=== PATIENT | female | born 1965 | race Caucasian/White ===

== ENCOUNTER 2017-09-12 22:05 | Observation (INO) ==
[2017-09-12] MEDS ORDERED: Aspirin 81 MG TAB.CHEW PO STA (22:12)
[2017-09-12] MEDS ORDERED: Ondansetron 4 MG/2 ML VIAL IVP ONE (22:15)
[2017-09-12] MEDS ORDERED: Nitroglycerin 0.4 MG TAB.SUBL SL ONE (22:16)
--- NOTE | 2017-09-12 22:16 | Emergency Department Note ---
Disposition Clinical Impression: Chest pain Qualifiers: Chest pain type: unspecified Qualified Code(s): R07.9 - Chest pain, unspecified Disposition: Admitted As Inpatient Condition: Undetermined Referrals: Clyde Lucio DO [Primary Care Provider] - Forms: ED Satisfaction Letter Time of Disposition: 23:13 Chest Pain HPI - General Chief Complaint: ED Chest Pain Stated Complaint: Chest pain, nausea, vomiting. Time Seen by Provider: 09/12/17 22:11 Source: patient, EMS Mode of arrival: EMS Limitations: no limitations Vital Signs Reviewed: Yes Nursing Notes Reviewed: Yes - History of Present Illness HPI Narrative: 51-year-old female with history of NM, hypertension, hyperlipidemia, diabetes, smoker, arrives to the emergency department with complaint of retrosternal chest pain radiating to the right side of her neck and right shoulder that started roughly 3 hours ago. The patient states that she had some associated shortness of breath and nausea. She has had no vomiting. She states that this is very similar to previous MIs in the past. She is very worried that she is having another NM. The patient states she took 2 aspirin earlier this morning. She was transported to the emergency department for evaluation. She denies any unilateral leg swelling, hemoptysis, history of DVT or PE, recent surgeries , recent immobilizations. - Related Data Home Medications Medication Instructions Recorded Confirmed GlipiZIDE XL (24 HR) [Glucotrol XL] 10 mg PO QAM 06/02/15 09/12/17 metFORMIN [Glucophage] 1,000 mg PO BID 06/02/15 09/12/17 Atorvastatin [Lipitor] 20 mg PO HS 09/12/17 09/12/17 Insulin Degludec [Tresiba 108 units SQ DAILY 09/12/17 09/12/17 Flextouch U-100] Allergies Allergy/AdvReac Type Severity Reaction Status Date / Time acetaminophen Allergy Hives Verified 04/17/15 17:27 [From Tylenol-Codeine] codeine Allergy Hives Verified 04/17/15 17:27 [From Tylenol-Codeine] All systems ED: reviewed and negative except as stated. Constitutional: Denies: fever Eyes: Denies: eye pain ENT ED: Denies: congestion Cardiovascular: Reports: chest pain, dyspnea on exertion, edema. Denies: orthopnea, syncope Respiratory: Reports: dyspnea. Denies: cough, wheezes Gastrointestinal: Reports: nausea. Denies: abdominal pain, vomiting, diarrhea, constipation, hematemesis, melena, hematochezia Genitourinary: Denies: urgency, dysuria Musculoskeletal: Denies: back pain Integumentary: Denies: rash Neurological: Denies: headache Chest Pain PMH - Past Medical History Medical history: Reports: arthritis, diabetes, hyperlipidemia, hypertension, myocardial infarction Surgical history: Reports: Psychiatric history: Reports: no psych history Prior Cardiac Testing/Procedures: Cardiac Angiogram - Social History Smoking Status: Current every day smoker Alcohol use: Reports: none Drug use: Reports: none Physical Exam - General Limitations: no limitations General appearance: alert, in no apparent distress - Head Head exam: atraumatic, normocephalic, normal inspection - Eye Eye exam: Present: normal appearance, PERRL, EOMI - ENT ENT exam: normal exam, normal oropharynx, mucous membranes moist - Neck Neck exam: Present: normal inspection, full ROM, trachea midline - Chest Chest inspection: Present: normal inspection, symmetric chest wall rise - Respiratory Respiratory exam: Present: normal lung sounds bilaterally - Cardiovascular Cardiovascular exam: Present: regular rate, normal rhythm, normal heart sounds - Abdominal Exam Abdominal exam: Present: soft, Non-Tender. Absent: tenderness, distention, guarding, rebound, rigidity, Mendoza's sign - Extremities Exam Extremities exam: Present: normal inspection, full ROM, pedal edema (Trace edema bilaterally). Absent: tenderness - Neurological Exam Neurological exam: Present: alert, oriented X3 - Skin Skin exam: Present: warm, dry, intact, normal color Course Vital Signs Temperature 97.9 F 09/12/17 22:19 Pulse Rate 76 09/12/17 22:19 Respiratory Rate 12 09/12/17 22:19 Blood Pressure 115/59 09/12/17 22:19 O2 Sat by Pulse Oximetry 96 09/12/17 22:19 Temperature 97.9 F 09/12/17 22:19 Pulse Rate 75 09/12/17 22:44 Respiratory Rate 12 09/12/17 22:44 Blood Pressure 128/71 09/12/17 22:44 O2 Sat by Pulse Oximetry 99 09/12/17 22:44 Oxygen Delivery Oxygen Delivery Room Air Chest Pain - MDM Narrative Medical decision making narrative: Workup in the emergency department demonstrates no elevation in troponin and no EKG changes, but given patient's history of NM without stent placement as well as history of hypertension, hyperlipidemia, smoking, diabetes mellitus any risk factors, we will admit the patient to the hospital for ACS rule out. The patient agrees to plan of care. No further questions or concerns noted at this time. The patient did have relief of her chest pain with 3 nitroglycerin. Patient is resting comfortably in the room at this time. Accepted by Dr. Stone. - Medical Records Medical records reviewed: Yes I reviewed the patient's medical records. - Lab Data Lab results reviewed: Yes I reviewed the patient's lab results. Result diagrams: 09/12/17 22:15 09/12/17 22:12 Lab Results 09/12/17 09/12/17 Range/Units 22:12 22:15 WBC 9.7 (4.3-11.1) K/mcL RBC 4.18 (3.82-4.97) M/mcL Hgb 12.9 (11.5-15.4) g/dL Hct 38.2 (35.3-44.9) % MCV 91.4 (83.0-100.0) fL MCH 30.9 (28.0-33.3) pg MCHC 33.8 (31.6-35.5) g/dL RDW 14.0 (11.5-14.5) % Plt Count 277 (140-400) K/mcL MPV 8.8 L (9.4-12.4) fL Immature Gran % 0.2 (0-4) % Seg Neutrophils % 40.7 % Lymphocytes % 49.7 % Monocytes % 5.5 % Eosinophils % 3.5 % Basophils % 0.4 % Neutrophils # 4.0 (1.6-8.9) K/mcL Lymphocytes # 4.8 H (0.6-4.6) K/mcL Monocytes # 0.5 (0.0-1.3) K/mcL Eosinophils # 0.3 (0.0-0.6) K/mcL Basophils # 0.0 (0.0-0.2) K/mcL Sodium 140 (136-145) mEq/L Potassium 3.4 L (3.5-5.1) mEq/L Chloride 106 (98-107) mEq/L Carbon Dioxide 27 (23-29) mEq/L BUN 9 (6-20) mg/dL Creatinine 0.47 L (0.60-1.20) mg/dL Est GFR ( Amer) > 60 (> 60) Est GFR (Non-Af Amer) > 60 (> 60) BUN/Creatinine Ratio 19 (6-26) Glucose 75 (70-105) mg/dL Calculated Osmolality 287 (280-300) Calcium 9.3 (8.6-10.3) mg/dL Total Bilirubin 0.4 (0.3-1.0) mg/dL AST 25 (13-39) Units/L ALT 22 (7-52) Units/L Alkaline Phosphatase 69 (34-104) Units/L Troponin I < 0.03 (< 0.04) ng/mL Serum Total Protein 7.1 (6.4-8.9) g/dL Albumin 3.7 (3.5-5.7) g/dL Globulin 3.4 (2.4-3.5) g/dL Albumin/Globulin Ratio 1.1 (1.1-2.2) - Radiology Data Radiology results reviewed: Yes I reviewed the patient's radiology results. Chest X-Ray 09/12/17 22:12 IMPRESSION: New mild pulmonary vascular congestion D/ / Jeff Garcia MD / Jeff Garcia MD Interpreting Provider: Jeff Garcia MD - EKG Data EKG attestation: Yes I reviewed and interpreted this EKG. EKG results narrative: Heart rate 75 beats for minute. Normal sinus rhythm. No ST elevation or ST depression noted. No acute changes noted.
[2017-09-12] MEDS: Nitroglycerin 0.4 MG TAB.SUBL SL PRN ×2 (22:24→22:28)
[2017-09-12 22:25] LABS: Basophils % 0.4 %; Eosinophils # 0.3 K/mcL (0.0-0.6); Eosinophils % 3.5 %; Hematocrit 38.2 % (35.3-44.9); Hemoglobin 12.9 g/dL (11.5-15.4); Immature Granulocytes % 0.2 % (0-4); Lymphocytes # 4.8 K/mcL (0.6-4.6); Lymphocytes % 49.7 %; Mean Corpuscular HGB Conc 33.8 g/dL (31.6-35.5); Mean Corpuscular Hemoglobin 30.9 pg (28.0-33.3); Mean Corpuscular Volume 91.4 fL (83.0-100.0); Mean Platelet Volume 8.8 fL (9.4-12.4); Monocytes # 0.5 K/mcL (0.0-1.3); Monocytes % 5.5 %; Platelet Count 277 K/mcL (140-400); Red Blood Count 4.18 M/mcL (3.82-4.97); Segmented Neutrophils % 40.7 %
--- NOTE | 2017-09-12 22:45 | Emergency Department Note ---
Disposition Clinical Impression: Chest pain Disposition: Admitted As Inpatient Condition: Undetermined General Adult HPI - General Chief complaint: ED Chest Pain Stated complaint: Chest pain, nausea, vomiting. Time Seen by Provider: 09/12/17 22:11 Source: patient, EMS Mode of arrival: EMS Limitations: no limitations Nursing Notes Reviewed: Yes Vital Signs Reviewed: Yes - History of Present Illness Pain Scale: 2 - Related Data Home Medications Medication Instructions Recorded Confirmed GlipiZIDE XL (24 HR) [Glucotrol XL] 10 mg PO QAM 06/02/15 09/12/17 metFORMIN [Glucophage] 1,000 mg PO BID 06/02/15 09/12/17 Atorvastatin [Lipitor] 20 mg PO HS 09/12/17 09/12/17 Insulin Degludec [Tresiba 108 units SQ DAILY 09/12/17 09/12/17 Flextouch U-100] Allergies Allergy/AdvReac Type Severity Reaction Status Date / Time acetaminophen Allergy Hives Verified 04/17/15 17:27 [From Tylenol-Codeine] codeine Allergy Hives Verified 04/17/15 17:27 [From Tylenol-Codeine] Constitutional: Denies: fever Eyes: Denies: eye pain ENT ED: Denies: congestion Cardiovascular: Reports: chest pain, dyspnea on exertion, edema. Denies: orthopnea, syncope Respiratory: Reports: dyspnea. Denies: cough, wheezes Gastrointestinal: Reports: nausea. Denies: abdominal pain, vomiting, diarrhea, constipation, hematemesis, melena, hematochezia Genitourinary: Denies: urgency, dysuria Musculoskeletal: Denies: back pain Integumentary: Denies: rash Neurological: Denies: headache Past Medical History - Past Medical History Medical history: Reports: arthritis, diabetes, hyperlipidemia, hypertension, myocardial infarction Surgical history: Reports: Psychiatric history: Reports: no psych history - Social History Smoking Status: Current every day smoker Smokeless Tobacco Status: No Alcohol use: Reports: none Drug use: Reports: none Physical Exam - General Limitations: no limitations General appearance: alert, in no apparent distress Course Vital Signs Temperature 97.9 F 09/12/17 22:19 Pulse Rate 76 09/12/17 22:19 Respiratory Rate 12 09/12/17 22:19 Blood Pressure 115/59 09/12/17 22:19 O2 Sat by Pulse Oximetry 96 09/12/17 22:19 Temperature 97.9 F 09/12/17 22:19 Pulse Rate 75 09/12/17 22:44 Respiratory Rate 12 09/12/17 22:44 Blood Pressure 128/71 09/12/17 22:44 O2 Sat by Pulse Oximetry 99 09/12/17 22:44 Oxygen Delivery Oxygen Delivery Room Air Medical Decision Making - Lab Data Result diagrams: 09/12/17 22:15 09/12/17 22:12 Lab Results 09/12/17 09/12/17 Range/Units 22:12 22:15 WBC 9.7 (4.3-11.1) K/mcL RBC 4.18 (3.82-4.97) M/mcL Hgb 12.9 (11.5-15.4) g/dL Hct 38.2 (35.3-44.9) % MCV 91.4 (83.0-100.0) fL MCH 30.9 (28.0-33.3) pg MCHC 33.8 (31.6-35.5) g/dL RDW 14.0 (11.5-14.5) % Plt Count 277 (140-400) K/mcL MPV 8.8 L (9.4-12.4) fL Immature Gran % 0.2 (0-4) % Seg Neutrophils % 40.7 % Lymphocytes % 49.7 % Monocytes % 5.5 % Eosinophils % 3.5 % Basophils % 0.4 % Neutrophils # 4.0 (1.6-8.9) K/mcL Lymphocytes # 4.8 H (0.6-4.6) K/mcL Monocytes # 0.5 (0.0-1.3) K/mcL Eosinophils # 0.3 (0.0-0.6) K/mcL Basophils # 0.0 (0.0-0.2) K/mcL Sodium 140 (136-145) mEq/L Potassium 3.4 L (3.5-5.1) mEq/L Chloride 106 (98-107) mEq/L Carbon Dioxide 27 (23-29) mEq/L BUN 9 (6-20) mg/dL Creatinine 0.47 L (0.60-1.20) mg/dL Est GFR ( Amer) > 60 (> 60) Est GFR (Non-Af Amer) > 60 (> 60) BUN/Creatinine Ratio 19 (6-26) Glucose 75 (70-105) mg/dL Calculated Osmolality 287 (280-300) Calcium 9.3 (8.6-10.3) mg/dL Total Bilirubin 0.4 (0.3-1.0) mg/dL AST 25 (13-39) Units/L ALT 22 (7-52) Units/L Alkaline Phosphatase 69 (34-104) Units/L Troponin I < 0.03 (< 0.04) ng/mL Serum Total Protein 7.1 (6.4-8.9) g/dL Albumin 3.7 (3.5-5.7) g/dL Globulin 3.4 (2.4-3.5) g/dL Albumin/Globulin Ratio 1.1 (1.1-2.2) Attestation Statement - Attestation Attestation: I, Dayo Cruz MD, personally evaluated this patient and discussed their management with the resident physician. I reviewed the resident's note and agree with the documented findings, medical decision making, and plan of care. 51-year-old female presents to the emergency department by ambulance with a complaint of substernal chest pains that started earlier this afternoon. The pain was intermittent until about 7 PM and has been constant since then. The pain radiates up to the right shoulder and the right side of the neck. Patient admits to shortness of breath associated with the pain. She also complains of nausea with some vomiting. Also some diaphoresis. Patient has a prior history of [place] and states this feels similar. She received aspirin at home and per EMS prior to arrival. She also received nitroglycerin sublingual. On examination patient is a well-developed obese female in no acute distress. She is alert and oriented 3. There is no cyanosis or diaphoresis. Chest is nontender to palpation. Breath sounds are clear and equal bilaterally. Heart regular rate and rhythm. Abdomen soft and nontender with normal bowel sounds. EKG shows a normal sinus rhythm with ventricular rate of 75. No ST segment elevations or depressions. Normal EKG. Chest x-ray shows new mild pulmonary vascular congestion. Labs reviewed and unremarkable. Troponin normal. The hospitalist, Dr. Stone, was consulted and accepted admission of the patient.
[2017-09-12 22:50] LABS: Alanine Aminotransferase 22 Units/L (7-52); Albumin 3.7 g/dL (3.5-5.7); Albumin/Globulin Ratio 1.1 (1.1-2.2); Alkaline Phosphatase 69 Units/L (34-104); Aspartate Amino Transferase 25 Units/L (13-39); BUN/Creatinine Ratio 19 (6-26); Bilirubin,Total 0.4 mg/dL (0.3-1.0); Blood Urea Nitrogen 9 mg/dL (6-20); Calcium 9.3 mg/dL (8.6-10.3); Carbon Dioxide 27 mEq/L (23-29); Chloride 106 mEq/L (98-107); Globulin 3.4 g/dL (2.4-3.5); Glucose 75 mg/dL (70-105); Osmolality,Calculated 287 (280-300); Potassium 3.4 mEq/L (3.5-5.1); Sodium 140 mEq/L (136-145); Total Protein 7.1 g/dL (6.4-8.9); eGFR For African Americans > 60 (> 60); eGFR For Non-African Americans > 60 (> 60)
[2017-09-12 22:52] LABS: Troponin I < 0.03 ng/mL (< 0.04)
[2017-09-12] MEDS ORDERED: D5% in Water 1,000 ML IVC PRN (23:15)
[2017-09-12] MEDS ORDERED: Naloxone 0.4 MG/ML INJ IVP PRN (23:15)
[2017-09-12] MEDS ORDERED: *HR* Dextrose 50 % in Water (Syg) 50 ML SYRINGE IVP PRN (23:15)
[2017-09-12] MEDS ORDERED: Dextrose Gel 15 GM/37.5 ML TUBE PO PRN ×2 (23:15)
[2017-09-12] MEDS ORDERED: Nitroglycerin 0.4 MG TAB.SUBL SL PRN (23:17)
--- NOTE | 2017-09-12 23:20 | Internal Med History&Physical ---
Date of Encounter: 09/12/17 Time of Encounter: 23:18 Internal Medicine - H&P: HPI Chief complaint: Chest pain Admitted From: Emergency Dept Plans for Post Hospital Care: Home History of present illness: Ms. Tatum is a 51 year old female with history of previous NC but no stents, HLD, DM, tobacco abuse presents with CP radiating to the right neck and right shoulder "similar to previous NC". This started this afternoon prior to arrival to the ED. She reports retrosternal pressure. Reports shortness of breath, nausea,diphoresis, and both upper and lower extremity swelling. She says the swelling has been going on for the last 3 days. She also reports dyspnea on exertion as well as orthopnea. Took 2 baby ASA at home and given 2 more in the ED. Had relieve with 3 SL nitro. ED course was unremarkable with EKG showing normal sinus rhythm with no acute ST or T wave changes. Trops not elevated. CXR showed mild pulmonary vascular congestion. Stress echo in 2016 was negative with an EF of 60%. Denies fever, chills, blurry vision, headache, vomiting, abdominal pain, diarrhea, constipation, urinary symptoms, or neurological symptoms. Past Med Surg Social Fam HX - Past Medical History Medical history: arthritis, diabetes, hyperlipidemia, hypertension, myocardial infarction Psychiatric history: no psych history - Past Surgical History Surgical History: - Social History Smoking Status: Current every day smoker Smokeless Tobacco Status: No Alcohol use: none Drug use: none - Family History Mother Hx Family Cardiac Disorders: Yes (CHF, HTN) Hx Family Cancer: Yes (Nonhodkins lymphoma, skin cancer) Hx Family Endocrine Disorder: Yes (Diabetes) Father Living Status: Hx Family Cardiac Disorders: Yes (Acute coronary occlusion) Hx Family Endocrine Disorder: Yes (Diabetes) Internal Medicine - H&P: Meds GlipiZIDE XL (24 HR) [Glucotrol XL] 10 mg PO QAM 06/02/15 [History] metFORMIN [Glucophage] 1,000 mg PO BID 06/02/15 [History] Atorvastatin [Lipitor] 20 mg PO HS 09/12/17 [History] Insulin Degludec [Tresiba Flextouch U-100] 108 units SQ DAILY 09/12/17 [History] 3 Allergy/AdvReac Type Severity Reaction Status Date / Time acetaminophen Allergy Hives Verified 04/17/15 17:27 [From Tylenol-Codeine] codeine Allergy Hives Verified 04/17/15 17:27 [From Tylenol-Codeine] All Systems PM: A 10-system review of systems was performed and is negative for pertinent findings except as documented above in the HPI. Review of systems: All systems reviewed are negative except for as mentioned above - Constitutional Vitals: Temp Pulse Resp BP Pulse Ox 97.9 F 75 12 128/71 99 09/12/17 22:19 09/12/17 22:44 09/12/17 22:44 09/12/17 22:44 09/12/17 22:44 Exam: GEN: NAD HEENT: AT, NC, No cyanosis, oral mucosa is moist, No JVD Lymphatics: No lymphadenoapthy Eyes: Extrocular muscles intact, anicteric CVS:RRR. S1, S2, No m/r/g RESP: Crackles heard at the bases for the most part. ABD: Soft, NT, ND, +BS EXT: Bilateral ankle edema noted, No rashes, 2+ DP NEURO: Nonfocal, CN II-XII intact, No focal motor or sensory deficits Psych: Cooperative, Not anxious or depressed Internal Med - H&P Results - Labs CBC & Chem 7: 09/12/17 22:15 09/12/17 22:12 Labs: Short CBC 09/12/17 Range/Units 22:15 WBC 9.7 (4.3-11.1) K/mcL Hgb 12.9 (11.5-15.4) g/dL Hct 38.2 (35.3-44.9) % Plt Count 277 (140-400) K/mcL Neutrophils # 4.0 (1.6-8.9) K/mcL BMP 09/12/17 22:12 Sodium 140 Potassium 3.4 L Chloride 106 Carbon Dioxide 27 BUN 9 Creatinine 0.47 L Glucose 75 Calcium 9.3 Cardiac Enzymes 09/12/17 Range/Units 22:12 Troponin I < 0.03 (< 0.04) ng/mL Liver Function 09/12/17 Range/Units 22:12 Total Bilirubin 0.4 (0.3-1.0) mg/dL AST 25 (13-39) Units/L ALT 22 (7-52) Units/L Alkaline Phosphatase 69 (34-104) Units/L Albumin 3.7 (3.5-5.7) g/dL - Impressions ITS Impressions Chest X-Ray 09/12/17 22:12 IMPRESSION: New mild pulmonary vascular congestion D/ / Jeff Garcia MD / Jeff Garcia MD Interpreting Provider: Jeff Garcia MD - Assessment and plan (1) Chest pain Current Visit: Yes Status: Acute Assessment and plan: Admit to tele. Trend trops. SL nitro. Stress test in am. Given ASA in ED. check A1c and lipid panel. NPO after midnight. Qualifiers: Chest pain type: unspecified Qualified Code(s): R07.9 - Chest pain, unspecified (2) Pulmonary vascular congestion Current Visit: Yes Status: Acute Assessment and plan: Patient has pulmonary vascular congestion on chest x-ray. She reports dyspnea on exertion, orthopnea, lower extremity and upper extremity swelling. She does have crackles on examination as well as pedal edema. We will check BNP. We will give a dose of 40 mg IV Lasix. We will check an echocardiogram. (3) HLD (hyperlipidemia) Current Visit: Yes Status: Acute Assessment and plan: c/w statin. check lipid panel Qualifiers: Hyperlipidemia type: unspecified Qualified Code(s): E78.5 - Hyperlipidemia , unspecified (4) Diabetes Current Visit: No Status: Chronic Assessment and plan: Insulin sliding scale. Accucheks. 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 Nicotine patch (6) DVT prophylaxis Current Visit: Yes Status: Acute Assessment and plan: heparin SQ. - Time Spent With Patient Total time spent is greater than 50% in coordination of care (as documented) at patient's floor/unit and/or counseling patient:
[2017-09-12] MEDS ORDERED: Furosemide 40 MG/4 ML VIAL IVP ONE (23:39)
[2017-09-13] MEDS: Acetaminophen 325 MG TABLET PO PRN ×2 (00:26→09:38)
[2017-09-13] MEDS: Nicotine 21 MG PATCH.TD24 TD SCH ×2 (00:27→09:01)
[2017-09-13] MEDS: Insulin LISPRO 300 UNITS/3 ML VIAL SQ SCH ×4 (00:28→19:04)
[2017-09-13] MEDS ORDERED: Regadenoson 0.4 MG/5 ML SYRINGE IVP ONE (05:26)
[2017-09-13 05:44] LABS: Troponin I < 0.03 ng/mL (< 0.04)
[2017-09-13 05:48] LABS: BUN/Creatinine Ratio 14 (6-26); Blood Urea Nitrogen 8 mg/dL (6-20); Carbon Dioxide 29 mEq/L (23-29); Chloride 107 mEq/L (98-107); Chol/HDL Ratio 3.5 (0-4.9); Cholesterol 128 mg/dL (< 200); Glucose 68 mg/dL (70-105); HDL Cholesterol 37 mg/dL (40-59); LDL Cholesterol,Calculated 67 mg/dL (0-99); Magnesium 2.1 mg/dL (1.6-2.6); Osmolality,Calculated 289 (280-300); Potassium 3.8 mEq/L (3.5-5.1); Sodium 141 mEq/L (136-145); Triglycerides 120 mg/dL (< 150); eGFR For African Americans > 60 (> 60); eGFR For Non-African Americans > 60 (> 60)
[2017-09-13] MEDS: *HR* Heparin 5,000 UNIT/ML VIAL SQ SCH ×3 (05:52→21:26)
[2017-09-13 09:32] LABS: Estimated Average Glucose 177 mg/dl; Hemoglobin A1C 7.8 %
--- NOTE | 2017-09-13 15:46 | Internal Med Progress Note ---
Date of Encounter: 09/13/17 Time of Encounter: 09:00 - Assessment and plan (1) Chest pain Current Visit: Yes Status: Acute Assessment and plan: Has not been expressing chest pain at this time troponins have been negative Underwent first half of a 2 day stress-nothing by mouth after midnight Continue with aspirin Qualifiers: Chest pain type: unspecified Qualified Code(s): R07.9 - Chest pain, unspecified (2) Tobacco abuse Current Visit: No Status: Acute Assessment and plan: Encouraged patient to stop smoking- Nicotine patch (3) Diabetes Current Visit: No Status: Chronic Assessment and plan: Insulin sliding scale. Accucheks. 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 (6) Pulmonary vascular congestion Current Visit: Yes Status: Acute Assessment and plan: Patient has pulmonary vascular congestion on chest x-ray. On presentation she reports dyspnea on exertion, orthopnea, lower extremity and upper extremity swelling. -Denies any shortness of breath or chest pain at this time BNP was okay Echocardiogram pending (7) Homelessness Current Visit: Yes Status: Acute Assessment and plan: Patient is homeless drug abuse social worker has been consulted for discharge planning - Time Spent With Patient Total time spent is greater than 50% in coordination of care (as documented) at patient's floor/unit and/or counseling patient: - Subjective Interval history: This patient is new to me I did examine the patient at bedside earlier in the day. She has completed the first half of 2 day stress test and tolerated procedure well. She denies any chest pain or shortness of breath at this time. - Constitutional Vitals: Temp Pulse Resp BP Pulse Ox 99.0 F 75 16 119/75 96 09/13/17 15:12 09/13/17 15:12 09/13/17 15:12 09/13/17 15:12 09/13/17 15:12 General appearance: Present: A&O X 3, morbidly obese - Head Head exam: Present: atraumatic, normocephalic - Eye Eye exam: Present: PERRL, conjuntiva pink, sclera anicteric Pupils: Present: PERRL - Neck Neck exam general surgery: Present: supple, trachea midline. Absent: lymphadenopathy - Respiratory Respiratory exam: Present: CTAB. Absent: accessory muscle use, rales, rhonchi, wheezes - Cardiovascular Cardiovascular exam: Present: RRR, +S1, +S2. Absent: diastolic murmur, gallop, rubs, systolic murmur - GI/Abdominal GI/Abdominal exam: Present: normal bowel sounds, soft, no peritoneal signs. Absent: distended, tenderness - Extremities Exam Extremities exam: Present: warm, radial pulses palpable and symmetrical. Absent : calf tenderness, cyanotic, pedal edema - Neurological Exam Neurological exam: Present: CN II-XII intact, oriented X3, no focal deficits. Absent: pronater drift, facial droop, speech deficit - Skin Skin exam: Present: dry, intact Internal Medicine: Result - Labs CBC & Chem 7: 09/12/17 22:15 09/13/17 04:40 Labs: BMP 09/13/17 04:40 Sodium 141 Potassium 3.8 Chloride 107 Carbon Dioxide 29 BUN 8 Creatinine 0.56 L Glucose 68 L Calcium 9.0 Cardiac Enzymes 09/13/17 09/13/17 Range/Units 04:40 09:38 Troponin I < 0.03 < 0.03 (< 0.04) ng/mL Consult Discharge Plan - Plan Referrals: Clyde Lucio DO [Primary Care Provider] -
[2017-09-14] MEDS: Insulin LISPRO 300 UNITS/3 ML VIAL SQ SCH ×5 (00:08→21:26)
[2017-09-14 04:46] LABS: Basophils % 0.5 %; Eosinophils # 0.3 K/mcL (0.0-0.6); Eosinophils % 3.4 %; Hematocrit 37.1 % (35.3-44.9); Hemoglobin 12.1 g/dL (11.5-15.4); Immature Granulocytes % 0.1 % (0-4); Lymphocytes # 3.4 K/mcL (0.6-4.6); Lymphocytes % 45.4 %; Mean Corpuscular HGB Conc 32.6 g/dL (31.6-35.5); Mean Corpuscular Hemoglobin 30.2 pg (28.0-33.3); Mean Corpuscular Volume 92.5 fL (83.0-100.0); Mean Platelet Volume 8.9 fL (9.4-12.4); Monocytes # 0.5 K/mcL (0.0-1.3); Monocytes % 6.2 %; Neutrophils # 3.4 K/mcL (1.6-8.9); Nucleated Red Blood Cells 0.3 /100 WBC (0); Platelet Count 264 K/mcL (140-400); Red Blood Count 4.01 M/mcL (3.82-4.97); Red Cell Distribution Width 14.3 % (11.5-14.5); Segmented Neutrophils % 44.4 %
[2017-09-14 05:04] LABS: BUN/Creatinine Ratio 20 (6-26); Blood Urea Nitrogen 11 mg/dL (6-20); Calcium 8.8 mg/dL (8.6-10.3); Carbon Dioxide 29 mEq/L (23-29); Chloride 106 mEq/L (98-107); Glucose 81 mg/dL (70-105); Osmolality,Calculated 288 (280-300); Potassium 3.8 mEq/L (3.5-5.1); Sodium 140 mEq/L (136-145); eGFR For African Americans > 60 (> 60); eGFR For Non-African Americans > 60 (> 60)
[2017-09-14] MEDS: *HR* Heparin 5,000 UNIT/ML VIAL SQ SCH ×3 (05:59→21:28)
[2017-09-14] MEDS: Nicotine 21 MG PATCH.TD24 TD SCH (08:19)
--- NOTE | 2017-09-14 16:09 | Electrocardiograph Report ---
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
--- NOTE | 2017-09-14 16:13 | Internal Med Progress Note ---
Date of Encounter: 09/14/17 Time of Encounter: 16:08 - Assessment and plan (1) Chest pain Current Visit: Yes Status: Acute Assessment and plan: Presented with chest pain described as pressure that radiated to neck. Reports history of mild MT many years ago. Serial troponin negative, EKG without acute ST changes. TTE with EF 60%, no wall motion abnormalities or valvular dysfunction. Stress test was small size, mild intensity perfusion defect that cannot exclude mild ischemia. Continue ASA, cardiology consulted Qualifiers: Chest pain type: unspecified Qualified Code(s): R07.9 - Chest pain, unspecified (2) Acute on chronic diastolic (congestive) heart failure Current Visit: Yes Status: Acute Assessment and plan: suspected. Symptomatic with lower extremity and hand edema. Rales noted on exam. CXR with vascular congestion. TTE with EF 60%, indeterminate diastolic dysfunction. Give one-time dose IV Lasix. (3) Tobacco abuse Current Visit: No Status: Acute Assessment and plan: Encouraged patient to stop smoking- Nicotine patch (4) Diabetes Current Visit: No Status: Chronic Assessment and plan: Insulin sliding scale. Accucheks. a1c-7.5 Qualifiers: Diabetes mellitus type: type 2 Diabetes mellitus mcc insulin use: with terminal operations manager use Diabetes mellitus complication status: without complication Qualified Code(s): E11.9 - Type 2 diabetes mellitus without complications; Z79.4 - penitentiary (current) use of insulin; Z79.4 - penitentiary ( current) use of insulin; Z79.4 - exterminator termite (current) use of insulin; Z79.4 - penitentiary (current) use of insulin (5) HLD (hyperlipidemia) Current Visit: Yes Status: Acute Assessment and plan: per hx. Cont home statin Qualifiers: Hyperlipidemia type: unspecified Qualified Code(s): E78.5 - Hyperlipidemia , unspecified (6) Homelessness Current Visit: Yes Status: Acute Assessment and plan: Patient is homeless. Currently living in homeless snf. 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 (7) DVT prophylaxis Current Visit: Yes Status: Acute Assessment and plan: heparin - Time Spent With Patient Total time spent is greater than 50% in coordination of care (as documented) at patient's floor/unit and/or counseling patient: - Subjective Interval history: Seen and examined at bedside. Patient is new to me, information obtained from chart review and patient report. Overall feels better, denies chest pain, no shortness of breath. Says she was told she had a mild heart attack many years ago. - Constitutional Vitals: Temp Pulse Resp BP Pulse Ox 98.7 F 78 16 129/78 95 09/14/17 16:00 09/14/17 16:00 09/14/17 16:00 09/14/17 16:00 09/14/17 16:00 General appearance: Present: A&O X 3, morbidly obese - Head Head exam: Present: atraumatic, normocephalic - Eye Eye exam: Present: PERRL, conjuntiva pink, sclera anicteric Pupils: Present: PERRL - Neck Neck exam general surgery: Present: supple, trachea midline. Absent: lymphadenopathy - Respiratory Respiratory exam: Present: CTAB. Absent: accessory muscle use, rales, rhonchi, wheezes - Cardiovascular Cardiovascular exam: Present: RRR, +S1, +S2. Absent: diastolic murmur, gallop, rubs, systolic murmur - GI/Abdominal GI/Abdominal exam: Present: normal bowel sounds, soft, no peritoneal signs. Absent: distended, tenderness - Extremities Exam Extremities exam: Present: warm, radial pulses palpable and symmetrical. Absent : calf tenderness, cyanotic, pedal edema - Neurological Exam Neurological exam: Present: CN II-XII intact, oriented X3, no focal deficits. Absent: pronater drift, facial droop, speech deficit - Skin Skin exam: Present: dry, intact Internal Medicine: Result - Labs CBC & Chem 7: 09/14/17 04:22 09/14/17 04:22 Labs: Short CBC 09/14/17 Range/Units 04:22 WBC 7.6 (4.3-11.1) K/mcL Hgb 12.1 (11.5-15.4) g/dL Hct 37.1 (35.3-44.9) % Plt Count 264 (140-400) K/mcL Neutrophils # 3.4 (1.6-8.9) K/mcL BMP 09/14/17 04:22 Sodium 140 Potassium 3.8 Chloride 106 Carbon Dioxide 29 BUN 11 Creatinine 0.54 L Glucose 81 Calcium 8.8 - Impressions Impressions Echocardiogram 09/12/17 23:41 Impressions: LVEF 60%. Indeterminate diastolic function. Normal right ventricular structure and function. No significant valvular dysfunction. No pulmonary hypertension. Left Ventricular Wall Motion: Rest Echo Findings All wall segments showed normal motion. Findings: Study Quality * Technically adequate exam. ECG Findings * Normal sinus rhythm. Left Ventricle * LVEF 60%. * Normal LV chamber size, wall thickness and function. * Indeterminate diastolic function. Right Ventricle * Normal right ventricular structure and function. Left Atrium * Normal left atrial size. Right Atrium * Normal right atrial size. Mitral Valve * Normal mitral valve structure. * No mitral stenosis. * Trace mitral regurgitation. Aortic Valve * No aortic regurgitation. * Aortic valve not well visualized. * No aortic stenosis. Tricuspid Valve * Normal tricuspid valve structure. * Trace tricuspid regurgitation. * Estimated RA pressure is 8 mmHg. * Estimated RVSP is 27 mmHg. * No pulmonary hypertension. Pulmonic Valve * Pulmonic valve is not well visualized. * No pulmonic stenosis. * No pulmonic regurgitation. Pulmonary Artery * Pulmonary artery not well visualized. Aorta * Normally sized aortic root. Pericardium * There is no pericardial effusion present. Interatrial Septum * Interatrial septum not well evaluated. IVC * The IVC is not dilated. * < 50% respiratory change. Consult Discharge Plan - Plan Referrals: Clyde Lucio DO [Primary Care Provider] - 09/28/17 3:00 pm
[2017-09-14] MEDS: Furosemide 40 MG/4 ML VIAL IVP ONE (16:50)
[2017-09-14] MEDS: Aspirin 81 MG TAB.CHEW PO SCH (16:50)
[2017-09-15] MEDS: *HR* Heparin 5,000 UNIT/ML VIAL SQ SCH ×3 (05:33→22:03)
[2017-09-15 06:12] LABS: Hematocrit 38.3 % (35.3-44.9); Hemoglobin 12.6 g/dL (11.5-15.4); Mean Corpuscular HGB Conc 32.9 g/dL (31.6-35.5); Mean Corpuscular Hemoglobin 29.9 pg (28.0-33.3); Mean Platelet Volume 8.9 fL (9.4-12.4); Platelet Count 259 K/mcL (140-400); Red Blood Count 4.21 M/mcL (3.82-4.97); Red Cell Distribution Width 14.1 % (11.5-14.5)
[2017-09-15 06:33] LABS: BUN/Creatinine Ratio 22 (6-26); Blood Urea Nitrogen 11 mg/dL (6-20); Calcium 9.1 mg/dL (8.6-10.3); Carbon Dioxide 30 mEq/L (23-29); Chloride 105 mEq/L (98-107); Glucose 124 mg/dL (70-105); Osmolality,Calculated 293 (280-300); Sodium 141 mEq/L (136-145); eGFR For African Americans > 60 (> 60); eGFR For Non-African Americans > 60 (> 60)
[2017-09-15] MEDS: Insulin LISPRO 300 UNITS/3 ML VIAL SQ SCH ×4 (08:06→22:02)
[2017-09-15] MEDS: Aspirin 81 MG TAB.CHEW PO SCH (08:29)
[2017-09-15] MEDS: Nicotine 21 MG PATCH.TD24 TD SCH (08:31)
--- NOTE | 2017-09-15 09:03 | Cardiology Consult Note ---
Date of Encounter: 09/15/17 Time of Encounter: 08:55 Assessment and Plan (1) Abnormal stress test Current Visit: Yes Status: Acute Nuclear stress test showed small sized, mild intensity apical inferior defect during stress, cannot exclude mild ischemia. Presented with chest pain at rest, radiated to right neck and shoulder relieved with 3 nitro in ED. Risk factors for CAD include DMII, obesity, HLD, tobacco abuse and family hx of premature CAD. Recommend [facility]. R/B/A discussed. Pt agrees to proceed. [facility] today. (2) Chest pain Current Visit: Yes Status: Acute Troponin negative x 3. No acute EKG changes. As above, abnormal stress test with multiple risk factors. [facility] today. R/B/A discussed. Qualifiers: Chest pain type: unspecified Qualified Code(s): R07.9 - Chest pain, unspecified Discussion w patient/family: The assessment and plan as outlined above was discussed with the patient and/or family members who expressed understanding and agreement. All questions were answered. Thank you for involving us in the care of your patient. Please call with any questions. I will discuss all the above with Dr. Millan and make changes as necessary. History of Present Illness Consult date: 09/15/17 Requesting physician: Rita Gonzalez Consult reason: Abnormal stress test Chief complaint: chest pain History of present illness: Ms. Tatum is a 51 year old female with history of reported prior [place] (not confirmed), has never had LHC, HLD, DM, tobacco abuse presented to ED with CP that started Wednesday described as midsternal, radiating to the right neck and right shoulder. Reported associated shortness of breath, nausea, diaphoresis. Reports increased LE edema. Had relieve with 3 SL nitro in ED without recurrence. Troponin negative x 3, CXR showed mild pulmonary vascular congestion. TTE completed EF 60%, no significant valvular dysfunction. Nuclear stress test showed small sized, mild intensity apical inferior perfusion during stress, cannot exclude mild ischemia. Cardiology consulted for further recs. Pt reports her father from [place] at age 56, brother from [place] in his early 50s. Past Med Surg Social Fam HX - Past Medical History Medical history: arthritis, diabetes, hyperlipidemia, hypertension, myocardial infarction Psychiatric history: no psych history - Past Surgical History Surgical History: - Social History Smoking Status: Current every day smoker Packs per day: 0.5 Smokeless Tobacco Status: No Alcohol use: none Drug use: none - Family History Mother Hx Family Cardiac Disorders: Yes (CHF, HTN) Hx Family Cancer: Yes (Nonhodkins lymphoma, skin cancer) Hx Family Endocrine Disorder: Yes (Diabetes) Father Living Status: Hx Family Cardiac Disorders: Yes (Acute coronary occlusion) Hx Family Endocrine Disorder: Yes (Diabetes) Medications and Allergies GlipiZIDE XL (24 HR) [Glucotrol XL] 10 mg PO QAM 06/02/15 [History] metFORMIN [Glucophage] 1,000 mg PO BID 06/02/15 [History] Atorvastatin [Lipitor] 20 mg PO HS 09/12/17 [History] Insulin Degludec [Tresiba Flextouch U-100] 108 units SQ QAM 09/12/17 [History] 3 Allergy/AdvReac Type Severity Reaction Status Date / Time acetaminophen Allergy Hives Verified 09/13/17 10:08 [From Tylenol-Codeine] codeine Allergy Hives Verified 09/13/17 10:08 [From Tylenol-Codeine] All Systems Review: The remainder of the systems were reviewed and are negative - Cardiovascular Cardiovascular: as per HPI, chest pain at rest, chest pain with exertion, diaphoresis, dyspnea on exertion, radiating jaw, neck or arm pain, leg edema - Respiratory Respiratory: dyspnea - Gastrointestinal Gastrointestinal: nausea Physical Examination Vital Signs, Last 4 Hours Temp Pulse Resp BP Pulse Ox 09/15/17 07:34 98.5 F 74 16 123/66 94 Vital Signs Temp Pulse Resp BP Pulse Ox 09/15/17 07:34 98.5 F 74 16 123/66 94 09/15/17 03:34 98.0 F 64 16 115/62 96 09/15/17 00:17 98.1 F 74 18 107/60 94 09/14/17 21:37 95 09/14/17 19:10 97.9 F 72 16 127/74 95 09/14/17 16:00 98.7 F 78 16 129/78 95 09/14/17 10:31 99.2 F 73 16 128/71 94 Intake and Output 09/14/17 09/15/17 09/15/17 23:59 07:59 15:59 Other: Stool Size Small Stool Consistency formed Stool Color Brown # Voids 3 # Bowel Movements 2 Weight 123 kg Blood Glucose* 239 128 Patient Weight 09/15/17 23:59 Weight 123 kg General: Conversant, No Apparent Distress HEENT: Atraumatic, Normocephaly, Mucus Membranes Moist Neck: No JVD, Normal carotid pulses Cardiac: Reg Rate and Rhythm, Normal S1 and S2, No Murmur Lungs: Normal Breath Sounds, No Wheeze, Rales, Rhonchi Neuro: Alert and responsive, No focal deficits noted Abdomen: Soft, Non-Tender Skin: No rashes noted on visualized skin Musculoskeletal: No Chest Wall Tenderness Extremities: No Clubbing, No Cyanosis, No Edema, Normal Pulses Results 09/15/17 05:49 09/15/17 05:49 Lab Results 09/15/17 09/15/17 05:49 05:49 WBC 7.2 Hgb 12.6 Hct 38.3 Plt Count 259 Sodium 141 Potassium 4.0 Chloride 105 Carbon Dioxide 30 H BUN 11 Creatinine 0.51 L Glucose 124 H Calcium 9.1 Short CBC 09/15/17 Range/Units 05:49 WBC 7.2 (4.3-11.1) K/mcL Hgb 12.6 (11.5-15.4) g/dL Hct 38.3 (35.3-44.9) % Plt Count 259 (140-400) K/mcL BMP 09/15/17 Range/Units 05:49 Sodium 141 (136-145) mEq/L Potassium 4.0 (3.5-5.1) mEq/L Chloride 105 (98-107) mEq/L Carbon Dioxide 30 H (23-29) mEq/L BUN 11 (6-20) mg/dL Creatinine 0.51 L (0.60-1.20) mg/dL Glucose 124 H (70-105) mg/dL Calcium 9.1 (8.6-10.3) mg/dL Impressions Echocardiogram 09/12/17 23:41 Impressions: LVEF 60%. Indeterminate diastolic function. Normal right ventricular structure and function. No significant valvular dysfunction. No pulmonary hypertension. Left Ventricular Wall Motion: Rest Echo Findings All wall segments showed normal motion. Findings: Study Quality * Technically adequate exam. ECG Findings * Normal sinus rhythm. Left Ventricle * LVEF 60%. * Normal LV chamber size, wall thickness and function. * Indeterminate diastolic function. Right Ventricle * Normal right ventricular structure and function. Left Atrium * Normal left atrial size. Right Atrium * Normal right atrial size. Mitral Valve * Normal mitral valve structure. * No mitral stenosis. * Trace mitral regurgitation. Aortic Valve * No aortic regurgitation. * Aortic valve not well visualized. * No aortic stenosis. Tricuspid Valve * Normal tricuspid valve structure. * Trace tricuspid regurgitation. * Estimated RA pressure is 8 mmHg. * Estimated RVSP is 27 mmHg. * No pulmonary hypertension. Pulmonic Valve * Pulmonic valve is not well visualized. * No pulmonic stenosis. * No pulmonic regurgitation. Pulmonary Artery * Pulmonary artery not well visualized. Aorta * Normally sized aortic root. Pericardium * There is no pericardial effusion present. Interatrial Septum * Interatrial septum not well evaluated. IVC * The IVC is not dilated. * < 50% respiratory change. Active Medications Acetaminophen (Tylenol) 650 mg PO Q6HR PRN PRN Reason: Mild Pain/Fever Stop: 03/14/18 23:16 Last Admin: 09/13/17 09:38 Dose: 650 mg Aspirin (Aspirin) 81 mg PO DAILY [facility] Stop: 03/16/18 16:31 Last Admin: 09/15/17 08:29 Dose: 81 mg Atorvastatin Calcium (Lipitor) 20 mg PO HS [facility] Stop: 03/15/18 21:01 Last Admin: 09/14/17 21:25 Dose: 20 mg Dextrose/Water (Dextrose 50% (Syg)) 25 ml IVP AD PRN PRN Reason: Hypoglycemia Stop: 03/14/18 23:16 Glucagon (Glucagen) 1 mg IM ONCE PRN PRN Reason: Hypoglycemia Stop: 03/14/18 23:16 Glucose (Gluctose) 15 gm PO ONCE PRN PRN Reason: Hypoglycemia Stop: 03/14/18 23:16 Glucose (Gluctose) 30 gm PO ONCE PRN PRN Reason: Hypoglycemia Stop: 03/14/18 23:16 Heparin Sodium (Porcine) (Heparin) 5,000 unit SQ Q8HCO [facility] Stop: 03/15/18 06:01 Last Admin: 09/15/17 05:33 Dose: 5,000 unit Dextrose (Dextrose 5%) 1,000 mls @ 100 mls/hr IVC .Q10H PRN PRN Reason: HYPOGLYCEMIA Stop: 03/14/18 23:16 Insulin Human Lispro (Humalog) 0 units SQ TIDAC [facility] PRN Reason: Protocol Stop: 03/16/18 16:31 Last Admin: 09/15/17 08:06 Dose: Not Given Insulin Human Lispro (Humalog) 0 units SQ HS [facility] PRN Reason: Protocol Stop: 03/16/18 21:01 Last Admin: 09/14/17 21:26 Dose: 3 units Naloxone HCl (Narcan) 0.4 mg IVP Q2MIN PRN PRN Reason: SEE COMMENTS Stop: 03/14/18 23:16 Nicotine (Nicoderm) 21 mg TD DAILY [facility] PRN Reason: Protocol Stop: 03/14/18 23:46 Last Admin: 09/15/17 08:31 Dose: Not Given Nitroglycerin (Nitroglycerin) 0.4 mg SL Q5MIN PRN PRN Reason: Chest Pain Stop: 03/14/18 22:13 Last Admin: 09/12/17 22:28 Dose: 0.4 mg Nitroglycerin (Nitroglycerin) 0.4 mg SL Q5MIN PRN PRN Reason: Chest Pain Stop: 03/14/18 23:18 - Imaging and Cardiology Stress Test: report reviewed Echo: report reviewed - EKG Interpretation EKG results cardiology: personally reviewed Consult Discharge Plan - Plan Referrals: Clyde Lucio DO [Primary Care Provider] - 09/28/17 3:00 pm
[2017-09-15] MEDS ORDERED: Verapamil 5 MG/2 ML VIAL ONE (15:34)
[2017-09-15] MEDS ORDERED: Heparin 1,000 UNITS/500 mL 500 ML ONE (15:35)
[2017-09-15] MEDS ORDERED: *HR* Heparin 10,000 UNIT/10 ML VIAL ONE (15:35)
[2017-09-15] MEDS ORDERED: ISOVUE-370 200 ML INFUS..BTL IV ONE (15:35)
[2017-09-15] MEDS ORDERED: Nitroglycerin 1,000 MCG/10 ML VIAL IV ONE (15:35)
[2017-09-15] MEDS ORDERED: 0.9 % Sodium Chloride 1,000 ML ONE ×2 (15:35→16:21)
--- NOTE | 2017-09-15 15:39 | Internal Med Progress Note ---
Date of Encounter: 09/15/17 Time of Encounter: 15:38 - Assessment and plan (1) Chest pain Current Visit: Yes Status: Acute Assessment and plan: Presented with chest pain described as pressure that radiated to neck. Reports history of mild NM many years ago. Serial troponin negative, EKG without acute ST changes. TTE with EF 60%, no wall motion abnormalities or valvular dysfunction. Stress test was small size, mild intensity perfusion defect that cannot exclude mild ischemia. [facility] planned 09/15. Continue ASA,. Cardiology following Qualifiers: Chest pain type: unspecified Qualified Code(s): R07.9 - Chest pain, unspecified (2) Acute on chronic diastolic (congestive) heart failure Current Visit: Yes Status: Acute Assessment and plan: suspected. Symptomatic with lower extremity and hand edema. Rales noted on exam. CXR with vascular congestion. TTE with EF 60%, indeterminate diastolic dysfunction. Give one-time dose IV Lasix. Clinically improved on 09/15 exam. Repeat CXR in the morning. Hold on further diuresis at this time. (3) Tobacco abuse Current Visit: No Status: Acute Assessment and plan: Encouraged patient to stop smoking- Nicotine patch (4) Diabetes Current Visit: No Status: Chronic Assessment and plan: per hx. Hgb A1c 7.8%. Blood sugars controlled. Cont SSI. Monitor blood sugar and titrate PRN Qualifiers: Diabetes mellitus type: type 2 Diabetes mellitus snf insulin use: with snf use Diabetes mellitus complication status: without complication Qualified Code(s): E11.9 - Type 2 diabetes mellitus without complications; Z79.4 - exterminator termite (current) use of insulin; Z79.4 - exterminator termite ( current) use of insulin; Z79.4 - exterminator termite (current) use of insulin; Z79.4 - residential (current) use of insulin (5) HLD (hyperlipidemia) Current Visit: Yes Status: Acute Assessment and plan: per hx. Cont home statin Qualifiers: Hyperlipidemia type: unspecified Qualified Code(s): E78.5 - Hyperlipidemia , unspecified (6) Homelessness Current Visit: Yes Status: Acute Assessment and plan: Patient is homeless. Currently living in homeless [facility]. Local resources provided for social insurance adviser. (7) DVT prophylaxis Current Visit: Yes Status: Acute Assessment and plan: heparin - Time Spent With Patient Total time spent is greater than 50% in coordination of care (as documented) at patient's floor/unit and/or counseling patient: - Subjective Interval history: Seen and examined at bedside; says she had uneventful night. No further chest pain or SOB recurrence. She is aware of plan for left heart catheterization liters afternoon. - Constitutional Vitals: Temp Pulse Resp BP Pulse Ox 98.0 F 71 15 108/60 94 09/15/17 11:21 09/15/17 11:21 09/15/17 11:21 09/15/17 11:21 09/15/17 11:21 General appearance: Present: A&O X 3, morbidly obese, no acute distress - Head Head exam: Present: atraumatic, normocephalic - Eye Eye exam: Present: PERRL, conjuntiva pink, sclera anicteric Pupils: Present: PERRL - Neck Neck exam general surgery: Present: supple, trachea midline. Absent: lymphadenopathy - Respiratory Respiratory exam: Present: CTAB. Absent: accessory muscle use, rales, rhonchi, wheezes - Cardiovascular Cardiovascular exam: Present: RRR, +S1, +S2. Absent: diastolic murmur, gallop, rubs, systolic murmur - GI/Abdominal GI/Abdominal exam: Present: normal bowel sounds, soft, no peritoneal signs. Absent: distended, tenderness - Extremities Exam Extremities exam: Present: warm, radial pulses palpable and symmetrical. Absent : calf tenderness, cyanotic, pedal edema - Neurological Exam Neurological exam: Present: CN II-XII intact, oriented X3, no focal deficits. Absent: pronater drift, facial droop, speech deficit - Skin Skin exam: Present: dry, intact Internal Medicine: Result - Labs CBC & Chem 7: 09/15/17 05:49 09/15/17 05:49 Labs: Short CBC 09/15/17 Range/Units 05:49 WBC 7.2 (4.3-11.1) K/mcL Hgb 12.6 (11.5-15.4) g/dL Hct 38.3 (35.3-44.9) % Plt Count 259 (140-400) K/mcL BMP 09/15/17 05:49 Sodium 141 Potassium 4.0 Chloride 105 Carbon Dioxide 30 H BUN 11 Creatinine 0.51 L Glucose 124 H Calcium 9.1 Consult Discharge Plan - Plan Referrals: Clyde Lucio DO [Primary Care Provider] - 09/28/17 3:00 pm
[2017-09-15] MEDS ORDERED: *HR* FentaNYL (PF) 100 MCG/2 ML VIAL ONE (16:36)
[2017-09-15] MEDS ORDERED: *HR* Midazolam HCl 5 MG/5 ML VIAL IVP ONE (16:36)
--- NOTE | 2017-09-15 16:45 | Pre-Sedation Evaluation ---
Pre-sedation evaluation - Pre-sedation checklist Date of procedure: 09/15/17 Procedure: [facility] Recent Vitals: Last Vital Signs Temp 98.0 F 09/15/17 11:21 Pulse 71 09/15/17 11:21 Resp 15 09/15/17 11:21 BP 108/60 09/15/17 11:21 Pulse Ox 94 09/15/17 11:21 H&P (including ROS) documented in medical record: Yes Previous reaction to sedatives/anesthetics: Yes; explain in comment Dietary Status: NPO after Midnight Dentition: No loose teeth or bridges ASA Classification *see protocol: CLASS II-Mild systemic disease Plan of Care: Pt appropriate candidate for procedure/moderate/conscious sedation , Risks/benefits of procedure/sedation discussed w/ patient/family
[2017-09-15] MEDS ORDERED: Tirofiban 12.5 MG/250ML 12.5 MG/250 ML BAG ONE (17:03)
--- NOTE | 2017-09-15 17:42 | Invasive Diagnostic Lab Proc ---
Name: Marga Tatum Date of Study: 09/15/2017 Date: 1965 Ht: 68.9in Medical Record#: [id number] Age: 51 Wt: 271.17lb Gender: Female BSA: 2.35 Order #: [id number] BMI: 40.16 Physicians Procedure Physician: Jaime Murray MD, FACC Referring MD: Clyde Lucio DO Referring MD: Staff Name Position Time In Yonathan Mcdonald RN Cigarette Lighter Repairer 04:19 PM Donald Ramirez RN Monitor 04:19 PM Sites, Melinda RT (R) Scrub 04:19 PM Indications Indication Abnormal Test - Stress Procedures Performed Procedure L HRT ARTERY/VENTRICLE ANGIO PRQ CARD ABBY STENT W/ANGIO 1 VSL Pre-Procedure Checklist Informed consent is complete signed and on chart. H&P is on chart. ID band is on and ID verified with patient. Patient NPO for procedure The procedure was described for the patient and questions were answered. Blood Pressure: 123/66 ECG is on chart. Rhythm: NSR Plan of Care Patient will tolerate the procedure without complications. Adequate level of comfort will be maintained. Hemodynamics will remain stable Patient will recover from procedure without complications. Respiratory function will be maintained. Cardiac rhythm will remain stable. Patient temperature will be maintained. Patient and/or family have verbalized understanding of the procedure. Patient Education Chief Complaint/Reason for Test: Cardiac Cath Developmental Category: Adult (18-64 years) Developmentally Appropriate for Age: Yes Learning Barriers: None Education Needs: Procedure Education Method: Verbal Information Taught: Cardiac Cath Educational Evaluation: Able to repeat information Intravenous Access Time IV Size Location DC'd Fluid/Drip Rate Units RN 04:17 PM 18g 1 1/4" Patent On Arrival Rt Wrist Yes 0.9NaCl 25 ml/hr Yonathan Mcdonald RN 04:25 PM 18g 1 1/4" Patent On Arrival Lt Antecubital 0.9NaCl Yonathan Mcdonald RN Allergies acetaminophen codeine Vital Signs Time BP (mmHg) HR (bpm) O2 Sat. RR (bpm) LOC 04:18 PM 123 / 66 74 94 % 16 5 = Fully awake and oriented or at pre-proc level 04:39 PM / % 5 = Fully awake and oriented or at pre-proc level 04:45 PM 134 / 75 68 95 % 04:50 PM 130 / 73 71 96 % 04:55 PM 131 / 71 86 93 % 05:00 PM 131 / 80 79 95 % 05:05 PM 136 / 69 70 95 % 05:10 PM 134 / 70 66 96 % 05:15 PM 130 / 65 62 96 % Procedural Medications Time Medication Dose Units Method Given By 04:39 PM Oxygen 2 L/min nasal cannula Yonathan Mcdonald RN 04:49 PM Versed 2 mg Intravenous Yonathan Mcdonald RN 04:49 PM Fentanyl 50 mcg Intravenous Yonathan Mcdonald RN 04:51 PM Lidocaine 2% 0.5 ml Subcutaneous Jaime Murray MD, FAC 04:54 PM Heparin 4000 units Nitroglycerin 200 mcg Verapamil 2.5 mg Intraarterial Jaime Murray MD, FAC 05:05 PM Nitroglycerin 150 mcg Intracoronary Jaime Murray MD 05:05 PM Heparin 1000 units Intravenous Yonathan Mcdonald RN 05:06 PM Aggrastat Bolus: 62 ml Intravenous Yonathan Mcdonald RN 05:06 PM Aggrastat 12.5mg/250ml 22.5 ml/hr Intravenous Yonathan Mcdonald RN 05:12 PM Plavix 600 mg Orally Yonathan Mcdonald RN ASA Classification: CLASS II- Mild systemic disease (i.e. well-controlled diabetes, hypertension, asthma, cigarette smoking) Lori Score Preprocedure Postprocedure Activity 2- Moves 4 extremities sustained head lift Activity 2- Moves 4 extremities sustained head lift Circulation 2- SBP +/= 20 points of pre-anesthetic level Circulation 2- SBP +/= 20 points of pre-anesthetic level Consciousness 2- Awake and alert oriented x 3 Consciousness 2- Awake and alert oriented x 3 O2 Saturation 2- Able to maintain O2 satruation of 92% on room air O2 Saturation 2- Able to maintain O2 satruation of 92% on room air Respiratory 2- Able to deep breathe and cough well Respiratory 2- Able to deep breathe and cough well Total Score 10 Total Score 10 Contrast Agent: Isovue Diagnostic Contrast: 80 ml Total Contrast: 80 ml Fluoro Dose: 550 mGy Activated Clotting Time Time Seconds to Clot 05:05 PM 262 Procedure Log Time Note Enter By 04:19 PM Pt arrived to hoisting laborer 2 at 16:19 [email or web address] 04:19 PM Yonathan Mcdonald RN Position: Cigarette Lighter Repairer Time in: 16:19 [email or web address] 04:19 PM Donald Ramirez RN Position: Monitor [facility]: 16:[email or web address] 04:20 PM Sites, Melinda RT (R) Position: Scrub Time in: 16:19 csmith 04:20 PM Patient charges- Angio tray pack, Navilyst 3mm J, Pulse Oximetry and ACIST tubing and transducer csmith 04:38 PM IV Supplies used: J loop Angio Cath. csmith 04:38 PM Physician arrived 16:38 csmith 04:38 PM Ruperto and gretyrese completed csmith 04:38 PM Sign in performed according to hospital policy. csmith 04:38 PM Procedure start 16:38 csmith 04:39 PM Hair removed from procedure site in procedure lab using clippers. Right wrist/ right groin prepped with Chloraprep by Melinda Treviño RT (R), then patient was draped. Skin intact. csmith 04:39 PM Time: 16:39 Oxygen on at 2 L/min per nasal cannula by Yonathan Mcdonald RN csmith 04:39 PM Time: 16:39 Patient comfortable and pain free: Yes csmith 04:39 PM Time: 16:39LOC: 5 = Fully awake and oriented or at pre-proc level csmith 04:42 PM CathStat 04:42 PM Clinical Presentation: Unstable angina csmith 04:44 PM CathStat 04:44 PM Vitals capture started with the following parameters, Patient=Adult, Interval=5 min, Initial Wmfqguvo=931 mmHg, Deflation Rate=5 mmHg, Cuff placed on Right Arm 04:45 PM HR=68 bpm, TWDK=430/75 mmhg, SpO2=95.0 %, Comment=nsr 04:48 PM ASA Class CLASS II- Mild systemic disease (i.e. well-controlled diabetes, hypertension, asthma, cigarette smoking) csmith 04:49 PM Time: 16:49 Versed 2 mg Intravenous Given by Yonathan Mcdonald RN csmith 04:49 PM Time: 16:49 Fentanyl 50 mcg Intravenous Given by Yonathan Mcdonald RN csmith 04:50 PM HR=71 bpm, BWLL=921/73 mmhg, SpO2=96.0 %, Comment=nsr 04:51 PM Time out performed according to hospital policy [facility] 04[facility] PM Time: 16:51 0.5 ml Lidocaine 2% to right radial Subcutaneous Given by Jaime Murray MD, [facility] [email or web address] 04:53 PM Pressure channel 1 zeroed. 04:54 PM Access obtained by percutaneous puncture. 6Fr 11cm Terumo Glidesheath sheath placed in right Radial artery. [id number] [email or web address] 04:54 PM Time: 16:54 Patient given 4,000 units Heparin, 200 mcg Nitroglycerin, and 2.5 mg Verapamil Intraarterial by Jaime Murray MD, [facility]. This is given to reduce risk of vessel spasm and thrombosis. [email or web address] 04:54 PM 5Fr TIG catheter inserted over the wire [facility] jcallihan 04:55 PM HR=86 bpm, VDLP=185/71 mmhg, SpO2=93.0 %, Comment=nsr 04:56 PM LCA angiography performed in multiple views. [email or web address] 04:57 PM Coronary Dominance: Left [email or web address] 04:58 PM Recorded Pressure: LV, ID=[id number], Condition=Condition 1 (Left Ventricle) LV 63/4/4 04:58 PM Recorded Pressure: LV, Ao, HR=77, Condition=Condition 1 (Left Ventricle) LV 61/25/20, (Aorta) Ao 94/50/69 04:58 PM Recorded Pressure: Ao, HR=87, Condition=Condition 1 (Aorta) Ao 96/71/83 04:58 PM Catheter selectively placed in left ventricle [email or web address] 04:59 PM Bolus angiogram of left Ventricle complete: 10 ml/sec for a total of 20 mls [email or web address] 04:59 PM repositioned to RCA [email or web address] 04:59 PM RCA angiography performed in multiple views. [email or web address] 05:00 PM Catheter removed [email or web address] 05:00 PM Lesion found in Mid RCA. Pre Stenosis: 70 Pre ANTONETTE Flow: 3: Complete and Brisk Flow/Perfusion jcallihan 05:00 PM HR=79 bpm, ZQXR=019/80 mmhg, SpO2=95.0 %, Comment=nsr 05:00 PM PCI Status Urgent [email or web address] 05:00 PM PCI Indication: PCI for high risk Non-STEMI or unstable angina jcallihan 05:01 PM 6Fr RBR 3.5 Convey guide catheter was used to cannulate the PCI vessel successfully. reused? No [email or web address] 05:01 PM .014 Floweree 190cm guide wire across target lesion- successful. reused? No [email or web address] 05:01 PM Inflation device was opened. [email or web address] 05:01 PM Lesion found in Distal LAD. Pre Stenosis: 30 Pre ANTONETTE Flow: [email or web address] 05:02 PM Lesion found in Left PDA. Pre Stenosis: 20 Pre ANTONETTE Flow: [email or web address] 05:02 PM Mid/Distal Left Anterior Descending Coronary Artery and diagonal branches with 30% stenosis. If graft is supplying this area, 0 % stenosis [email or web address] 05:02 PM Circumflex, Obtuse Marginal, Left Posterior Descending, and Left Posterolateral Coronary Arteries with 20 % stenosis. If graft is supplying this area, 0 % stenosis [email or web address] 05:03 PM 3.0mm x 16mm Synergy drug-eluting stent across target lesion- successful Lot #[id number] jcallan 05:04 PM Recorded Pressure: Ao, HR=70, Condition=Condition 1 (Aorta) Ao 107/56/78 05:05 PM At 17:05 the ACT was 262 seconds. [email or web address] 05:05 PM HR=70 bpm, SCUL=268/69 mmhg, SpO2=95.0 %, Comment=nsr 05:05 PM Time: 17:05 Nitroglycerin 150 mcg Intracoronary Given by [facility]ime [facility] MD [facility] 05:06 PM Time: 17:05 Heparin 1000 units Intravenous Given by Yonathan Mcdonald RN 05:06 PM Time: 17:06 Aggrastat Bolus: 62 ml Intravenous Given by Yonathan Mcdonald RN [employer] [facility] allheidi 05:06 PM Time: 17:06 Aggrastat 12.5mg/250ml 22.5 ml/hr Intravenous Given by Yonathan Mcdonald RN [facility] 05:07 PM Stent deployed @ 16 blue for 22 seconds [email or web address] 05:08 PM Stent delivery system removed intact. allan 05:08 PM 3.75 mm x 15mm NC Trek Rx balloon across target lesion- successful. reused? No [email or web address] 05:09 PM Balloon inflated @ 18 blue for 17 seconds [email or web address] 05:09 PM Balloon inflated @ 18 blue for 9 seconds [email or web address] 05:10 PM Balloon catheter removed intact. [email or web address] 05:10 PM Guide wire removed intact. [email or web address] 05:10 PM HR=66 bpm, XJVI=416/70 mmhg, SpO2=96.0 %, Comment=nsr 05:11 PM Guide catheter removed intact. [email or web address] 05:11 PM Procedure completed at 17:11 [facility] 05[facility] PM Did you address ANTONETTE flow and Dominance? Yes [email or web address] 05:11 PM Isovue 370 - 200ml,1 Bottle(s) used. [email or web address] 05:12 PM Time: 17:12 Plavix 600 mg Orally Given by Yonathan Mcdonald RN [email or web address] 05:13 PM Sign out completed: Radiation Dose 550 mGy Fluoro Time: 4.3 Isovue 370 - 200ml contrast 80 ml given by Jaime Murray MD, [facility]. Complications: NoneCardiac Rehab Consult needed: YesConfirmed administered medications: Yes [email or web address] 05:13 PM Arterial sheath pulled, Vasc Band closure device used and was Successful S/N. jcallihan 05:13 PM 10 ml air in Vasc Band. jcallihan 05:13 PM Estimated Blood Loss: less than 20cc jcallihan 05:13 PM Post ECG NSR jcallihan 05:13 PM Post Blood Pressure 134/70 jcallihan 05:13 PM 17:13 Post Pulses Bilateral radial 2+ [email or web address] 05:14 PM Information taught Cardiac Cath, PCI, and Vasc Band jcallihan 05:14 PM Education needs Procedure, Plan of Care, and Responsibilities of Patient in Care jcallihan 05:14 PM Learning barriers :None jcallihan 05:14 PM Education Methods Verbal jcallihan 05:14 PM Education evaluation Able to repeat information jcallihan 05:14 PM Site status No bleeding/hematoma - Rt Wrist as reported by Sites, Melinda RT (R) at 17:14 [email or web address] 05:14 PM Plavix, Effient or Brilinta given Yes jcallihan 05:14 PM Family wanted to stay in room. Did not come down. [email or web address] 05:15 PM Complications: None jcallihan 05:15 PM Fluoro Time: 4.3 [email or web address] 05:15 PM Isovue 370 - 200ml contrast 80 ml given by Jaime Murray. [email or web address] 05:15 PM Radiation Dose 550 mGy jcallihan 05:15 PM HR=62 bpm, SATT=794/65 mmhg, SpO2=96.0 %, Comment=nsr 05:26 PM Report given to 3B RN Pt taken to 3B Room #46. 17:25 jcallihan 05:26 PM Patient out of room: 17:26 [email or web address] Complications Complication None None Hemodynamics Pressures Site Systolic/A Wave Diastolic/V Wave Mean LV 63 4 4 LV 61 25 20 AO 94 50 69 AO 96 71 83 AO 107 56 78 Post Procedure Information Blood Pressure: 134/70 mmHg Rhythm: NSR Post procedural instructions were given Closure Device Time Device Success/Fail 09/15/2017 5:15:00 PM Mechanical Compression Successful Site Checks Time Location Status Staff Sheath In? Note 05:14 PM Rt Wrist No bleeding/hematoma Sites, Melinda RT (R) Pulses Time Site Pre-Procedure Post-Procedure Note 09/15/2017 4:18:00 PM Bilateral DP & radial 2+ 5:13:00 PM Bilateral radial 2+ Updated by Donald Ramirez RN on 09/15/2017 5:35:23 PM electronically signed on 09/15/2017 5:36:00 PM with status of Final
[2017-09-15] MEDS: Tirofiban 12.5 MG/250ML 12.5 MG/250 ML BAG IVC SCH (17:50)
[2017-09-15] MEDS: Acetaminophen 325 MG TABLET PO PRN (22:01)
[2017-09-16] MEDS: Tirofiban 12.5 MG/250ML 12.5 MG/250 ML BAG IVC SCH (01:49)
[2017-09-16] MEDS: *HR* Heparin 5,000 UNIT/ML VIAL SQ SCH (05:18)
[2017-09-16 05:57] LABS: Hematocrit 38.4 % (35.3-44.9); Hemoglobin 12.5 g/dL (11.5-15.4); Mean Corpuscular HGB Conc 32.6 g/dL (31.6-35.5); Mean Corpuscular Hemoglobin 29.6 pg (28.0-33.3); Mean Platelet Volume 9.1 fL (9.4-12.4); Platelet Count 240 K/mcL (140-400); Red Blood Count 4.22 M/mcL (3.82-4.97); Red Cell Distribution Width 14.2 % (11.5-14.5)
[2017-09-16 06:18] LABS: BUN/Creatinine Ratio 22 (6-26); Blood Urea Nitrogen 10 mg/dL (6-20); Carbon Dioxide 27 mEq/L (23-29); Chloride 108 mEq/L (98-107); Glucose 109 mg/dL (70-105); Osmolality,Calculated 290 (280-300); Potassium 3.9 mEq/L (3.5-5.1); Sodium 140 mEq/L (136-145); eGFR For African Americans > 60 (> 60); eGFR For Non-African Americans > 60 (> 60)
[2017-09-16] MEDS: Insulin LISPRO 300 UNITS/3 ML VIAL SQ SCH (08:33)
[2017-09-16] MEDS: Aspirin 81 MG TAB.CHEW PO SCH (08:34)
[2017-09-16] MEDS: Nicotine 21 MG PATCH.TD24 TD SCH (08:34)
[2017-09-16] MEDS: Acetaminophen 325 MG TABLET PO PRN (08:34)
--- NOTE | 2017-09-16 10:27 | Cardiology Progress Note ---
Date of Encounter: 09/16/17 Time of Encounter: 10:24 Assessment and Plan (1) CAD (coronary artery disease) Current Visit: Yes Status: Acute LHC yesterday for abnormal stress test. LHC showed severe one vessel CAD in distribution of stress perfusion defect. EF 60%. Successful PTCA/Drug-Eluting Stent placement in the mid RCA. DAPT (ASA and Plavix) uninterrupted x 1 year. Pt verbalizes understanding. Continue Statin, BB. Right radial access site healing well. No bleeding, hematoma or ecchymosis noted. LHC restrictions discussed. TTE EF preserved. Risk factor modification and smoking cessation discussed. Cardiology signing off. Reconsult PRN. Will coordinate outpt follow-up in 3-4 weeks. Pt instructed not to return to work until 09/24/17. Qualifiers: Coronary Disease-Associated Artery/Lesion type: [place] artery [place] vs. transplanted heart: [place] heart Associated angina: angina presence unspecified Qualified Code(s): I25.10 - Atherosclerotic heart disease of [place] coronary artery without angina pectoris (2) Status post coronary artery stent placement Current Visit: Yes Status: Acute As above, ABBY to mRCA. ASA, Plavix, Statin, BB. Discussion w patient/family: The assessment and plan as outlined above was discussed with the patient and/or family members who expressed understanding and agreement. All questions were answered. Thank you for involving us in the care of your patient. Please call with any questions. I will discuss all the above with Dr. Sanchez and make changes as necessary. Subjective Principal diagnosis: CAD s/p PCI Interval history: Underwent LHC yesterday for abnormal stress test. There is severe one vessel coronary artery disease in distribution of stress perfusion defect. The left ventricle is normal and has normal contractility EF 60%. Patient had successful PTCA/Drug-Eluting Stent placement in the mid RCA. Pt denies chest pain or dyspnea overnight. Reports she currently has a "pins and needles" sensation in her chest. Denies dyspnea. Objective Vital Signs, Last 4 Hours Temp Pulse Resp BP Pulse Ox 09/16/17 07:05 98.1 F 81 14 125/74 95 Vital Signs Temp Pulse Resp BP Pulse Ox 09/16/17 07:05 98.1 F 81 14 125/74 95 09/16/17 03:11 97.9 F 66 17 119/69 96 09/15/17 23:18 98.2 F 74 16 112/64 95 09/15/17 21:45 92 09/15/17 21:30 75 18 130/68 94 09/15/17 20:30 76 18 132/63 94 09/15/17 19:30 72 16 146/83 92 09/15/17 19:00 77 15 143/82 93 09/15/17 18:30 75 16 134/83 75 09/15/17 18:15 74 16 123/82 94 09/15/17 18:00 79 15 149/89 94 09/15/17 17:45 98.5 F 70 17 156/84 95 09/15/17 11:21 98.0 F 71 15 108/60 94 Intake and Output 09/15/17 09/16/17 09/16/17 23:59 07:59 15:59 Intake Total 440 / 440 682 / 682 480 / 480 Output Total 200 / 200 Balance 440 / 440 482 / 482 480 / 480 Intake: IV Fluids 322 / 322 Aggrastat 12.5 MG/250 ML 12.5 322 / 322 mg In 250 ml @ 0.15 MCG/KG/MIN 22.14 mls/hr IVC .[id number] [facility] Rx#:[id number] Oral 240 / 240 360 / 360 480 / 480 Free Water 200 / 200 Output: Urine 200 / 200 Other: Meal Dinner Breakfast Percent of Meal Consumed 100% 100% Weight 122.3 kg Blood Glucose* 218 144 Patient Weight 09/16/17 23:59 Weight 122.3 kg General: Conversant, No Apparent Distress HEENT: Atraumatic, Normocephaly, Mucus Membranes Moist Neck: No JVD, Normal carotid pulses Cardiac: Reg Rate and Rhythm, Normal S1 and S2, No Murmur Lungs: Normal Breath Sounds, No Wheeze, Rales, Rhonchi Neuro: Alert and responsive, No focal deficits noted Abdomen: Soft, Non-Tender Skin: Other (right radial access site healing well. No bleeding, hematoma or ecchymosis noted.) Musculoskeletal: No Chest Wall Tenderness Extremities: No Clubbing, No Cyanosis, No Edema, Normal Pulses Results 09/16/17 04:38 09/16/17 04:38 Lab Results 09/16/17 09/16/17 04:38 04:38 WBC 6.4 Hgb 12.5 Hct 38.4 Plt Count 240 Sodium 140 Potassium 3.9 Chloride 108 H Carbon Dioxide 27 BUN 10 Creatinine 0.45 L Glucose 109 H Calcium 9.0 Short CBC 09/16/17 Range/Units 04:38 WBC 6.4 (4.3-11.1) K/mcL Hgb 12.5 (11.5-15.4) g/dL Hct 38.4 (35.3-44.9) % Plt Count 240 (140-400) K/mcL BMP 09/16/17 Range/Units 04:38 Sodium 140 (136-145) mEq/L Potassium 3.9 (3.5-5.1) mEq/L Chloride 108 H (98-107) mEq/L Carbon Dioxide 27 (23-29) mEq/L BUN 10 (6-20) mg/dL Creatinine 0.45 L (0.60-1.20) mg/dL Glucose 109 H (70-105) mg/dL Calcium 9.0 (8.6-10.3) mg/dL Active Medications Acetaminophen (Tylenol) 650 mg PO Q6HR PRN PRN Reason: Mild Pain/Fever Stop: 03/14/18 23:16 Last Admin: 09/16/17 08:34 Dose: 650 mg Aspirin (Aspirin) 81 mg PO DAILY [facility] Stop: 03/16/18 16:31 Last Admin: 09/16/17 08:34 Dose: 81 mg Atorvastatin Calcium (Lipitor) 20 mg PO HS [facility] Stop: 03/15/18 21:01 Last Admin: 09/15/17 22:02 Dose: 20 mg Clopidogrel Bisulfate (Plavix) 75 mg PO DAILY [facility] Stop: 03/18/18 09:01 Last Admin: 09/16/17 08:34 Dose: 75 mg Dextrose/Water (Dextrose 50% (Syg)) 25 ml IVP AD PRN PRN Reason: Hypoglycemia Stop: 03/14/18 23:16 Glucagon (Glucagen) 1 mg IM ONCE PRN PRN Reason: Hypoglycemia Stop: 03/14/18 23:16 Glucose (Gluctose) 15 gm PO ONCE PRN PRN Reason: Hypoglycemia Stop: 03/14/18 23:16 Glucose (Gluctose) 30 gm PO ONCE PRN PRN Reason: Hypoglycemia Stop: 03/14/18 23:16 Heparin Sodium (Porcine) (Heparin) 5,000 unit SQ Q8HCO [facility] Stop: 03/15/18 06:01 Last Admin: 09/16/17 05:18 Dose: Not Given Dextrose (Dextrose 5%) 1,000 mls @ 100 mls/hr IVC .Q10H PRN PRN Reason: HYPOGLYCEMIA Stop: 03/14/18 23:16 Tirofiban/Sodium Chloride (Aggrastat 12.5 Mg/250 Ml) 12.5 mg in 250 mls @ 22.14 mls/hr IVC .[id number] [facility] PRN Reason: 0.15 MCG/KG/MIN Stop: 03/17/18 17:16 Last Infusion: 09/16/17 05:16 Dose: 0 mcg/kg/min, 0 mls/hr Insulin Human Lispro (Humalog) 0 units SQ TIDAC [facility] PRN Reason: Protocol Stop: 03/16/18 16:31 Last Admin: 09/16/17 08:33 Dose: 2 units Insulin Human Lispro (Humalog) 0 units SQ HS [facility] PRN Reason: Protocol Stop: 03/16/18 21:01 Last Admin: 09/15/17 22:02 Dose: Not Given Metoprolol Tartrate (Lopressor) 25 mg PO BID [facility] Stop: 03/18/18 09:01 Naloxone HCl (Narcan) 0.4 mg IVP Q2MIN PRN PRN Reason: SEE COMMENTS Stop: 03/14/18 23:16 Nicotine (Nicoderm) 21 mg TD DAILY [facility] PRN Reason: Protocol Stop: 03/14/18 23:46 Last Admin: 09/16/17 08:34 Dose: Not Given Nitroglycerin (Nitroglycerin) 0.4 mg SL Q5MIN PRN PRN Reason: Chest Pain Stop: 03/14/18 22:13 Last Admin: 09/12/17 22:28 Dose: 0.4 mg Nitroglycerin (Nitroglycerin) 0.4 mg SL Q5MIN PRN PRN Reason: Chest Pain Stop: 03/14/18 23:18 - Imaging and Cardiology Stress Test: report reviewed Echo: report reviewed Cardiac cath: report reviewed - EKG Interpretation EKG results cardiology: other (12 hr tele AVG HR 68, SR, no significant pauses or arrhythmias.) Consult Discharge Plan - Plan Additional Instructions: RISK FACTORS: STOP SMOKING: If you smoke, STOP. Smoking or tobacco use significantly increases your risk of heart disease because nicotine causes the arteries to narrow or constrict. It also causes fats to stick to the artery. Your chances of having a heart attack are greatly increased if you continue to smoke. For more information, call the education line for smoking cessation 6-782-VZHZCTL EAT A LOW FAT/CHOLESTEROL/SODIUM DIET: This diet may help reduce your chances of having a heart attack. LIFTING: With affected extremity: Avoid bending, pushing off and lifting more than 2 pounds for 24 hours The following 48 hours, avoid lifting anything more than 5 pounds Avoid strenuous activity or repetitive motions ACTIVITY: You may walk or climb stairs as tolerated You can resume sexual activity as tolerated In general, you are encouraged to engage in a minimum of 30 minutes or more of moderate intensity physical activity, such as brisk walking, daily or at least 3 -4 times weekly BATHING Do not submerge the site into water (bath tub, hot tub, swimming pool, dishes) for 1 week. This can be a source for infection into the blood stream. You may shower after 24 hours SITE CARE: After 24 hours, you may remove the dressing and leave the site open to air. Keep the site clean and dry. Clean gently and pat dry. You can expect bruising and tenderness that gradually resolve within a week or two. Return to work as instructed per your physician Resume driving as instructed per physician Keep all scheduled follow up appointments Resume medications as instructed IMPORTANT: If prescribed a Platelet Aggregation Inhibitor such as, Plavix, Brilinta or Effient: Duration of therapy is minimum one year These medications are often used in combination with Aspirin in prevention of future heart attacks Never discontinue unless consult with your Clean Rice Grader And Reel Tender STROKE (CVA) Risk factors for a stroke are: Age, cigarette smoking, diabetes, excessive alcohol consumption, family history, high blood pressure, overweight, physical inactivity, prior stroke, heart attack, diagnosis of carotid artery stenosis or other artery disease. Warning signs: Sudden numbness or weakness of the face, arm or leg; especially on one side of the body, sudden confusion, trouble speaking or understanding, sudden trouble seeing in one or both eyes, sudden trouble walking, dizziness, loss of balance or coordination, sudden severe headache with no cause. Call 911 or go to the Emergency Room. CONGESTIVE HEART FAILURE: If you have been diagnosed with Congestive Heart Failure (CHF) and your symptoms return, make an appointment with your physician Weigh yourself daily. Notify your physician if you have a weight gain of two or more pounds in one day or five or more pounds in one week. If you experience any difficulty breathing, please call 911 BLEEDING: Although the risk of bleeding is minimal, it can happen. If you have any bleeding from the site, apply firm pressure above the puncture site for 10-15 minutes. If the bleeding does not stop, continue manual pressure and call 911 Contact [facility] ( ) if: You develop a fever greater than 101 degrees Fahrenheit Your site becomes reddened or has any drainage You have an increase in pain or burning at the site or if a large knot forms at the site. If you experience chest pain, shortness of breath, dizziness, or extreme tiredness, stop the activity and rest. Please notify [facility] office if you experience any of these symptoms and they are not relieved by rest please call 911! Referrals: Clyde Lucio DO [Primary Care Provider] - 09/28/17 3:00 pm
[2017-09-16 11:22] VITALS: BP 139/84
--- NOTE | 2017-09-16 11:48 | Discharge Summary ---
Orders not resulted at time of discharge: Pending orders 09/15/17 17:14 ECG 12 lead ECG [ECG] Stat 09/16/17 06:00 ECG 12 lead ECG [ECG] AM 0600 09/17/17 04:00 BMP [Basic Metabolic Panel] AM 0400 BMP [Basic Metabolic Panel] AM 0400 Complete Blood Count w/o Diff [HEME] AM 0400 Complete Blood Count w/o Diff [HEME] AM 0400 09/18/17 04:00 BMP [Basic Metabolic Panel] AM 0400 BMP [Basic Metabolic Panel] AM 0400 Complete Blood Count w/o Diff [HEME] AM 0400 Complete Blood Count w/o Diff [HEME] AM 0400 09/19/17 04:00 BMP [Basic Metabolic Panel] AM 0400 BMP [Basic Metabolic Panel] AM 0400 Complete Blood Count w/o Diff [HEME] AM 0400 Complete Blood Count w/o Diff [HEME] AM 0400 09/20/17 04:00 BMP [Basic Metabolic Panel] AM 0400 Complete Blood Count w/o Diff [HEME] AM 0400 Date of Encounter: 09/16/17 Time of Encounter: 11:41 - Discharge Diagnosis (1) CAD (coronary artery disease) Priority: Primary Status: Acute Assessment and Plan: presented with chest pain that radiated to neck. Serial troponin negative, EKG without acute ST changes. TTE with EF 60%, no wall motion abnormalities or valvular dysfunction. Stress test was small size, mild intensity perfusion defect. 09/15/17 LHC showed severe one vessel CAD in distribution of stress perfusion defect; s/p successful PTCA/Drug-Eluting Stent placement in the mid RCA. DAPT (ASA and Plavix) uninterrupted x 1 year. Continue Statin, BB. Follow- up with cardiology outpatient Qualifiers: Coronary Disease-Associated Artery/Lesion type: ho-chunk artery [place] vs. transplanted heart: ho-chunk heart Associated angina: angina presence unspecified Qualified Code(s): I25.10 - Atherosclerotic heart disease of ho-chunk coronary artery without angina pectoris (2) Acute on chronic diastolic (congestive) heart failure Priority: Primary Status: Acute Assessment and Plan: suspected. Symptomatic with lower extremity and hand edema. Rales noted on exam. CXR with vascular congestion. TTE with EF 60%, indeterminate diastolic dysfunction. Received one-time dose IV Lasix with improvement in symptoms. Appeared euvolemic at discharge; not on diuretics at home. Defer further diuresis to PCP/cardiology on outpatient follow-up. (3) Diabetes Priority: Primary Status: Chronic Assessment and Plan: per hx. Hgb A1c 7.8%. Blood sugars controlled. 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 Cont home statin Qualifiers: Hyperlipidemia type: unspecified Qualified Code(s): E78.5 - Hyperlipidemia , unspecified (5) Homelessness Priority: Secondary Status: Acute Assessment and Plan: Patient is homeless. Currently living in homeless fpc. Local resources provided per social service worker. (6) Tobacco abuse Priority: Primary Status: Acute Assessment and Plan: current smoker; cessation advised Hospital course: See assessment and plan for hospital course Discharge discussed with: patient (Seen and examined at bedside. Patient says she feels back to baseline and once to discharge home today. Denies chest pain , no shortness of breath. Has some tenderness at right radial site, otherwise she has no complaints.) - Time Spent with Patient Total time spent providing and/or coordinating discharge services: - Discharge Medications Prescriptions: Aspirin 81 mg PO DAILY #90 tab.chew Atorvastatin [Lipitor] 20 mg PO HS #90 tablet Clopidogrel [Plavix] 75 mg PO DAILY #90 tablet GlipiZIDE XL (24 HR) [Glucotrol XL] 10 mg PO QAM #90 tab.er.24 metFORMIN [Glucophage] 1,000 mg PO BID #120 tablet Metoprolol [Lopressor] 25 mg PO BID #180 tablet Nicotine Patch [Nicoderm] 21 mg TD DAILY #30 patch.td24 Home Medications: Insulin Degludec [Tresiba Flextouch U-100] 108 units SQ QAM 09/12/17 [History] Aspirin 81 mg PO DAILY #90 tab.chew 09/16/17 [Rx] Atorvastatin [Lipitor] 20 mg PO HS #90 tablet 05/03/18 [Rx] Clopidogrel [Plavix] 75 mg PO DAILY #90 tablet 09/16/17 [Rx] GlipiZIDE XL (24 HR) [Glucotrol XL] 10 mg PO QAM #90 tab.er.24 09/16/17 [Rx] Metoprolol [Lopressor] 25 mg PO BID #180 tablet 09/16/17 [Rx] Nicotine Patch [Nicoderm] 21 mg TD DAILY #30 patch.td24 09/16/17 [Rx] metFORMIN [Glucophage] 1,000 mg PO BID #120 tablet 09/16/17 [Rx] Allergies/Adverse Reactions: 3 Allergy/AdvReac Type Severity Reaction Status Date / Time acetaminophen Allergy Hives Verified 09/13/17 10:08 [From Tylenol-Codeine] codeine Allergy Hives Verified 09/13/17 10:08 [From Tylenol-Codeine] Date of admission: 09/12/17 23:20 Primary care physician: Clyde Lucio DO Consults: 09/13/17 09:45 Consult to Control Operator [employer]at [CONS] Routine Reason for SW Consult: planning for discharge, pt homeless 09/14/17 16:16 Consult to Cardiology [CONS] Routine Comment: Consulting Provider: Cardiology Ave Reason for Consult: abnormal stress Call Completed: Yes 09/15/17 17:14 Consult to Cardiac Rehabilitation-Phase1 [CONS] Routine Comment: Reason for Consult: post op PCI Call Completed: Yes Discharging clinician: Rita Gonzalez Anticipated date of discharge: 09/16/17 - Constitutional Vitals: Temp Pulse Resp BP Pulse Ox 98.6 F 82 14 139/84 96 09/16/17 11:20 09/16/17 11:20 09/16/17 11:20 09/16/17 11:20 09/16/17 11:20 General appearance: Present: A&O X 3, morbidly obese, no acute distress - Head Head exam: Present: atraumatic, normocephalic - Eye Eye exam: Present: PERRL, conjuntiva pink, sclera anicteric Pupils: Present: PERRL - Neck Neck exam general surgery: Present: supple, trachea midline. Absent: lymphadenopathy - Respiratory Respiratory exam: Present: CTAB. Absent: accessory muscle use, rales, rhonchi, wheezes - Cardiovascular Cardiovascular exam: Present: RRR, +S1, +S2. Absent: diastolic murmur, gallop, rubs, systolic murmur - GI/Abdominal GI/Abdominal exam: Present: normal bowel sounds, soft, no peritoneal signs. Absent: distended, tenderness - Extremities Exam Extremities exam: Present: warm, radial pulses palpable and symmetrical. Absent : calf tenderness, cyanotic, pedal edema - Neurological Exam Neurological exam: Present: CN II-XII intact, oriented X3, no focal deficits. Absent: pronater drift, facial droop, speech deficit - Skin Skin exam: Present: dry, intact - Patient Status Disposition: Home, Self-Care Condition: Good Functional capacity at discharge: independent ambulation Overall status at discharge: patient is back to baseline - Discharge Instructions Instructions: Heart Failure (DC), How to Stop Smoking (DC), Diabetes Mellitus Type 2 in Adults (DC), Clopidogrel (By mouth), Aspirin (By mouth), Metoprolol ( By mouth) Follow Up With: Clyde Lucio DO [Primary Care Provider] - 09/28/17 3:00 pm Forms: Work/School Release Additional Instructions: RISK FACTORS: STOP SMOKING: If you smoke, STOP. Smoking or tobacco use significantly increases your risk of heart disease because nicotine causes the arteries to narrow or constrict. It also causes fats to stick to the artery. Your chances of having a heart attack are greatly increased if you continue to smoke. For more information, call the education line for smoking cessation 9-051-FAIHWKE EAT A LOW FAT/CHOLESTEROL/SODIUM DIET: This diet may help reduce your chances of having a heart attack. LIFTING: With affected extremity: Avoid bending, pushing off and lifting more than 2 pounds for 24 hours The following 48 hours, avoid lifting anything more than 5 pounds Avoid strenuous activity or repetitive motions ACTIVITY: You may walk or climb stairs as tolerated You can resume sexual activity as tolerated In general, you are encouraged to engage in a minimum of 30 minutes or more of moderate intensity physical activity, such as brisk walking, daily or at least 3 -4 times weekly BATHING Do not submerge the site into water (bath tub, hot tub, swimming pool, dishes) for 1 week. This can be a source for infection into the blood stream. You may shower after 24 hours SITE CARE: After 24 hours, you may remove the dressing and leave the site open to air. Keep the site clean and dry. Clean gently and pat dry. You can expect bruising and tenderness that gradually resolve within a week or two. Return to work as instructed per your physician Resume driving as instructed per physician Keep all scheduled follow up appointments Resume medications as instructed IMPORTANT: If prescribed a Platelet Aggregation Inhibitor such as, Plavix, Brilinta or Effient: Duration of therapy is minimum one year These medications are often used in combination with Aspirin in prevention of future heart attacks Never discontinue unless consult with your Pony Trimmer STROKE (CVA) Risk factors for a stroke are: Age, cigarette smoking, diabetes, excessive alcohol consumption, family history, high blood pressure, overweight, physical inactivity, prior stroke, heart attack, diagnosis of carotid artery stenosis or other artery disease. Warning signs: Sudden numbness or weakness of the face, arm or leg; especially on one side of the body, sudden confusion, trouble speaking or understanding, sudden trouble seeing in one or both eyes, sudden trouble walking, dizziness, loss of balance or coordination, sudden severe headache with no cause. Call 911 or go to the Emergency Room. CONGESTIVE HEART FAILURE: If you have been diagnosed with Congestive Heart Failure (CHF) and your symptoms return, make an appointment with your physician Weigh yourself daily. Notify your physician if you have a weight gain of two or more pounds in one day or five or more pounds in one week. If you experience any difficulty breathing, please call 911 BLEEDING: Although the risk of bleeding is minimal, it can happen. If you have any bleeding from the site, apply firm pressure above the puncture site for 10-15 minutes. If the bleeding does not stop, continue manual pressure and call 911 Contact [facility] ( ) if: You develop a fever greater than 101 degrees Fahrenheit Your site becomes reddened or has any drainage You have an increase in pain or burning at the site or if a large knot forms at the site. If you experience chest pain, shortness of breath, dizziness, or extreme tiredness, stop the activity and rest. Please notify [facility] office if you experience any of these symptoms and they are not relieved by rest please call 911! - Diet and Activity Activity: increase activity as tolerated Diet: diabetic diet, low fat, low cholesterol
== END 2017-09-16 13:28 | disposition home or self-care (01) ==
LOC: EMEROO 22:05 → 3BNU 22:05
PROVIDERS: ADMIT Internal Medicine; ATTEND Internal Medicine

== ENCOUNTER 2017-12-22 16:06 | Observation (INO) ==
[2017-12-22] MEDS ORDERED: Nitroglycerin 0.4 MG TAB.SUBL SL PRN (16:35)
--- NOTE | 2017-12-22 16:37 | Emergency Department Note ---
Disposition Clinical Impression: Chest pain Qualifiers: Chest pain type: unspecified Qualified Code(s): R07.9 - Chest pain, unspecified Volume overload Qualifiers: Hypervolemia type: unspecified Qualified Code(s): E87.70 - Fluid overload, unspecified Disposition: Admitted As Inpatient Condition: Good Chest Pain HPI - General Chief Complaint: ED Chest Pain Stated Complaint: chest pain Time Seen by Provider: 12/22/17 16:11 Source: patient Mode of arrival: private vehicle Limitations: no limitations Vital Signs Reviewed: Yes Nursing Notes Reviewed: Yes - History of Present Illness HPI Narrative: 52-year-old female history of coronary artery disease with one stent placed in July of this year, diabetes, hypertension who presents to the ER with a complaint of lower extremity swelling and shortness of breath. Patient states she was seen her on Wednesday and has been having swelling of her legs since the end of last month. Reports a 10 pound weight gain in the last 9 days. She received almost replaced with Lasix. States that she came today because she had shortness of breath and chest pain. Describes the pain as dull in the center of her chest into her back. Denies any recent illnesses. No cough, nausea, vomiting. No other complaints. Pt complaint: chest pain Onset (ago): day(s) Duration: intermittent Pain Location: substernal Severity: moderate Severity scale (1-10): 0 Quality: heaviness Pain Radiation: back Improves with: nothing Worsens with: nothing Associated symptoms: Reports: dyspnea, leg swelling Treatments prior to arrival chest pain: none - Related Data Home Medications Medication Instructions Recorded Confirmed Insulin Glargine,Hum.rec.anlog 60 unit SQ QAM 12/22/17 12/22/17 [Basaglar Kwikpen U-100] Ipratropium/Albuterol Sulfate 1 puff IH QID 12/22/17 12/22/17 [Combivent Respimat 20-100 Mcg] Isosorbide MONOnitrate (24 HR) 30 mg PO DAILY 12/22/17 12/22/17 [Imdur] Omeprazole [PriLOSEC] 20 mg PO DAILY 12/22/17 12/22/17 Previous Rx's Medication Instructions Recorded Aspirin 81 mg PO DAILY #90 tab.chew 09/16/17 Atorvastatin [Lipitor] 20 mg PO HS #90 tablet 09/16/17 Clopidogrel [Plavix] 75 mg PO DAILY #90 tablet 09/16/17 GlipiZIDE XL (24 HR) [Glucotrol XL] 10 mg PO QAM #90 tab.er.24 09/16/17 Metoprolol [Lopressor] 25 mg PO BID #180 tablet 09/16/17 metFORMIN [Glucophage] 1,000 mg PO BID #120 tablet 09/16/17 Furosemide [Lasix] 20 mg PO DAILY #3 tablet 12/20/17 Allergies Allergy/AdvReac Type Severity Reaction Status Date / Time acetaminophen Allergy Hives Verified 12/20/17 10:09 [From Tylenol-Codeine] codeine Allergy Hives Verified 12/20/17 10:09 [From Tylenol-Codeine] All systems ED: reviewed and negative except as stated. Constitutional: Denies: fever Cardiovascular: Reports: chest pain Respiratory: Reports: dyspnea. Denies: cough Gastrointestinal: Denies: abdominal pain, nausea, vomiting Musculoskeletal: Reports: other (Lower extremity swelling) Chest Pain PMH - Past Medical History Medical history: Reports: arthritis, diabetes, hyperlipidemia, hypertension, myocardial infarction Surgical history: Reports: Psychiatric history: Reports: no psych history Prior Cardiac Testing/Procedures: Cardiac Angiogram - Social History Smoking Status: Current every day smoker Alcohol use: Reports: none Drug use: Reports: none Physical Exam - General Limitations: no limitations General appearance: alert, in no apparent distress - Head Head exam: atraumatic, normocephalic - Eye Eye exam: Present: normal appearance - ENT ENT exam: normal exam - Neck Neck exam: Present: normal inspection - Chest Chest inspection: Present: normal inspection, symmetric chest wall rise. Absent : tenderness - Respiratory Respiratory exam: Present: normal lung sounds bilaterally - Cardiovascular Cardiovascular exam: Present: regular rate, normal rhythm, normal heart sounds - Abdominal Exam Abdominal exam: Present: soft, Non-Tender. Absent: tenderness, distention, rigidity - Extremities Exam Extremities exam: Present: normal inspection, full ROM - Expanded Upper Extremity Exam Shoulder exam: Present: normal inspection, full ROM Arm exam: Present: normal inspection, full ROM Elbow exam: Present: normal inspection, full ROM Forearm/Wrist exam: Present: normal inspection, full ROM Hand exam: Present: normal inspection, full ROM - Expanded Lower Extremity Exam Hip/Pelvis exam: Present: normal inspection, full ROM Upper leg exam: Present: normal inspection, full ROM Knee exam: Present: normal inspection, full ROM Lower leg exam: Present: normal inspection, full ROM, swelling (Significant swelling to the bilateral lower extremities with 2+ pitting edema.) Ankle exam: Present: normal inspection, full ROM Foot/toe exam: Present: normal inspection, full ROM - Skin Skin exam: Present: warm, dry Course Course Narrative: Patient seen and examined. Vital signs reviewed. Her EKG, chest x-ray, labs. Nitroglycerin for chest pain. - Reevaluation(s) Reevaluation #1: Chest pain has resolved with nitroglycerin. Discussed imaging and labs with the patient. Agreeable with plan. 40 mg of Lasix ordered. Vital Signs Temperature 97.9 F 12/22/17 16:07 Pulse Rate 66 12/22/17 16:07 Respiratory Rate 16 12/22/17 16:07 Blood Pressure 137/77 12/22/17 16:07 O2 Sat by Pulse Oximetry 95 12/22/17 16:07 Temperature 97.9 F 12/22/17 19:44 Pulse Rate 62 12/22/17 19:44 Respiratory Rate 16 12/22/17 19:44 Blood Pressure 141/84 12/22/17 19:44 O2 Sat by Pulse Oximetry 96 12/22/17 19:44 Oxygen Delivery Oxygen Delivery Room Air Chest Pain - MDM Narrative Medical decision making narrative: 52-year-old female with peripheral edema developing chest pain and shortness of breath. Hemogram is stable. EKG nonischemic. Chest x-ray with mild pulmonary vascular congestion with peripheral edema on exam. Negative troponin and BNP. Nitroglycerin relieved chest pain. 40 mg of Lasix IV given in the ED. Admitted to the hospitalist service. - Lab Data Lab results reviewed: Yes I reviewed the patient's lab results. Result diagrams: 12/22/17 16:34 12/22/17 16:34 Lab Results 12/22/17 12/22/17 12/22/17 Range/Units 16:34 16:34 16:34 WBC 8.0 (4.3-11.1) K/mcL RBC 4.26 (3.82-4.97) M/mcL Hgb 13.3 (11.5-15.4) g/dL Hct 39.5 (35.3-44.9) % MCV 92.7 (83.0-100.0) fL MCH 31.2 (28.0-33.3) pg MCHC 33.7 (31.6-35.5) g/dL RDW 14.2 (11.5-14.5) % Plt Count 242 (140-400) K/mcL MPV 9.4 (9.4-12.4) fL Immature Gran % 0.2 (0-4) % Seg Neutrophils % 44.3 % Lymphocytes % 42.8 % Monocytes % 6.2 % Eosinophils % 5.9 % Basophils % 0.6 % Neutrophils # 3.5 (1.6-8.9) K/mcL Lymphocytes # 3.4 (0.6-4.6) K/mcL Monocytes # 0.5 (0.0-1.3) K/mcL Eosinophils # 0.5 (0.0-0.6) K/mcL Basophils # 0.1 (0.0-0.2) K/mcL PT 11.3 (9.4-12.1) Seconds INR 1.0 APTT 35.1 (26.0-36.0) Seconds Sodium (136-145) mEq/L Potassium (3.5-5.1) mEq/L Chloride (98-107) mEq/L Carbon Dioxide (23-29) mEq/L BUN (6-20) mg/dL Creatinine (0.60-1.20) mg/dL Est GFR ( Amer) (> 60) Est GFR (Non-Af Amer) (> 60) BUN/Creatinine Ratio (6-26) Glucose (70-105) mg/dL Calculated Osmolality (280-300) Calcium (8.6-10.3) mg/dL Troponin I (< 0.04) ng/mL B-Natriuretic Peptide 60 (Less than 100) pg/mL 12/22/17 Range/Units 16:34 WBC (4.3-11.1) K/mcL RBC (3.82-4.97) M/mcL Hgb (11.5-15.4) g/dL Hct (35.3-44.9) % MCV (83.0-100.0) fL MCH (28.0-33.3) pg MCHC (31.6-35.5) g/dL RDW (11.5-14.5) % Plt Count (140-400) K/mcL MPV (9.4-12.4) fL Immature Gran % (0-4) % Seg Neutrophils % % Lymphocytes % % Monocytes % % Eosinophils % % Basophils % % Neutrophils # (1.6-8.9) K/mcL Lymphocytes # (0.6-4.6) K/mcL Monocytes # (0.0-1.3) K/mcL Eosinophils # (0.0-0.6) K/mcL Basophils # (0.0-0.2) K/mcL PT (9.4-12.1) Seconds INR APTT (26.0-36.0) Seconds Sodium 142 (136-145) mEq/L Potassium 3.9 (3.5-5.1) mEq/L Chloride 109 H (98-107) mEq/L Carbon Dioxide 30 H (23-29) mEq/L BUN 11 (6-20) mg/dL Creatinine 0.56 L (0.60-1.20) mg/dL Est GFR ( Amer) > 60 (> 60) Est GFR (Non-Af Amer) > 60 (> 60) BUN/Creatinine Ratio 20 (6-26) Glucose 90 (70-105) mg/dL Calculated Osmolality 293 (280-300) Calcium 8.6 (8.6-10.3) mg/dL Troponin I < 0.03 (< 0.04) ng/mL B-Natriuretic Peptide (Less than 100) pg/mL - Radiology Data Radiology results reviewed: Yes I reviewed the patient's radiology results. Chest X-Ray 12/22/17 16:11 IMPRESSION: Stable chest. Mild central vascular congestion with no overt failure or focal infiltrate. D/ / Brian Mcknight MD / Brian Mcknight MD Interpreting Provider: Brian Mcknight MD - EKG Data EKG attestation: Yes I reviewed and interpreted this EKG. EKG results narrative: EKG demonstrates sinus rhythm with a rate of 61 bpm. Normal axis. Normal intervals. Normal R-wave progression. T-wave inversions in lead 3. No gross ST elevations or depressions. No acute ischemic findings. No significant changes from previous EKG dated 12/20/17. Heart Score - Score History: Moderately Suspicious EKG: Normal Age: 45-65 Risk Factors: Equal/Greater than 3 risk factor or history of atherosclerotic disease Troponin: Less than normal limit HEART Score Total: 4 S.B.A.R. - S.Marlen Situation: Demographics, MOA Background: Presenting Complaint, Relevant PMH, Meds, & Allergies Assessment: Course and respsone to treatment, Exam Concerns, Patient/Family Expectation, Pertinant Lab Results Recommendation: Barrier(s) to disposition, Recommendation based on pending studies, treatments, or consults SBiju Report Given to: Hospitalist Ann Repor Time: 18:03 Attestation Statement - Attestation Attestation: I examined this patient and my medical decision-making was reviewed with the Resident Physician. I agree with the documented findings, disposition and treatment plan as described except to the extent set forth below. Findings consistent with chest pain. This is the second visit. We will proceed with admission, aspirin administration, EKG and cardiac biomarkers are negative at this time. We will proceed with admission for cardiac consultation.
[2017-12-22 16:53] LABS: Basophils # 0.1 K/mcL (0.0-0.2); Basophils % 0.6 %; Eosinophils # 0.5 K/mcL (0.0-0.6); Eosinophils % 5.9 %; Hematocrit 39.5 % (35.3-44.9); Hemoglobin 13.3 g/dL (11.5-15.4); Immature Granulocytes % 0.2 % (0-4); Lymphocytes # 3.4 K/mcL (0.6-4.6); Lymphocytes % 42.8 %; Mean Corpuscular HGB Conc 33.7 g/dL (31.6-35.5); Mean Corpuscular Hemoglobin 31.2 pg (28.0-33.3); Mean Corpuscular Volume 92.7 fL (83.0-100.0); Mean Platelet Volume 9.4 fL (9.4-12.4); Monocytes # 0.5 K/mcL (0.0-1.3); Monocytes % 6.2 %; Neutrophils # 3.5 K/mcL (1.6-8.9); Platelet Count 242 K/mcL (140-400); Red Blood Count 4.26 M/mcL (3.82-4.97); Red Cell Distribution Width 14.2 % (11.5-14.5); Segmented Neutrophils % 44.3 %
[2017-12-22 16:59] LABS: Activated Partial Thrombo Time 35.1 Seconds (26.0-36.0)
[2017-12-22 17:06] LABS: Troponin I < 0.03 ng/mL (< 0.04)
[2017-12-22 17:07] LABS: BUN/Creatinine Ratio 20 (6-26); Blood Urea Nitrogen 11 mg/dL (6-20); Calcium 8.6 mg/dL (8.6-10.3); Carbon Dioxide 30 mEq/L (23-29); Chloride 109 mEq/L (98-107); Glucose 90 mg/dL (70-105); Osmolality,Calculated 293 (280-300); Potassium 3.9 mEq/L (3.5-5.1); Sodium 142 mEq/L (136-145); eGFR For Non-African Americans > 60 (> 60)
[2017-12-22 17:17] LABS: Prothrombin Time 11.3 Seconds (9.4-12.1)
[2017-12-22] MEDS ORDERED: Furosemide 40 MG/4 ML VIAL IVP ONE (17:41)
[2017-12-22] MEDS ORDERED: Naloxone 0.4 MG/ML INJ IVP PRN (19:23)
[2017-12-22] MEDS ORDERED: Ipratropium/Albuterol Neb 3 ML IH PRN (19:24)
[2017-12-22] MEDS ORDERED: D5% in Water 1,000 ML IVC PRN (19:25)
[2017-12-22] MEDS ORDERED: *HR* Dextrose 50 % in Water (Syg) 50 ML SYRINGE IVP PRN (19:25)
[2017-12-22] MEDS ORDERED: Dextrose Gel 15 GM/37.5 ML TUBE PO PRN ×2 (19:25)
--- NOTE | 2017-12-22 20:15 | Internal Med History&Physical ---
Date of Encounter: 12/22/17 Time of Encounter: 19:30 Internal Medicine - H&P: HPI Chief complaint: lightheadedness History of present illness: Ms. Tatum is a 52 year old female with history of CAD status post PCI in July 2017, diabetes, hypertension, presented to the ED with 1 week history of leg swelling and shortness of breath. She was seen in the ED on Wednesday for the same complaint when she was given PO lasix 20mg to take at home. She states that it has not resolved her issue and was not urinating more frequently. Denies any orthopnea, PND, chest pain, palpitation, cough, or sputum production. No fevers/chills, nausea/vomiting, abdominal pain, dysuria, hematuria, change in bowel habits, joint pain, or rash. States that she does not excessively drink fluid. In the ED, she was afebrile and hemodynamically stable. Saturating 95% on room air. Lab work was unremarkable with normal CBC and BMP. Troponin was negative. BNP was 60. EKG normal sinus rhythm without ST elevations. She was given 1 dose of IV Lasix and admitted for further management. Past Med Surg Social Fam HX - Past Medical History Attestation: Yes The following information was validated with the patient. Medical history: arthritis, diabetes, hyperlipidemia, hypertension, myocardial infarction Psychiatric history: no psych history - Past Surgical History Surgical History: Additional surgical history: Lymph node resection 2005 - Social History Smoking Status: Current every day smoker Smokeless Tobacco Status: No Alcohol use: none Drug use: none - Family History Mother Hx Family Cardiac Disorders: Yes (CHF, HTN) Hx Family Cancer: Yes (Nonhodkins lymphoma, skin cancer) Hx Family Endocrine Disorder: Yes (Diabetes) Father Living Status: Hx Family Cardiac Disorders: Yes (Acute coronary occlusion) Hx Family Endocrine Disorder: Yes (Diabetes) Internal Medicine - H&P: Meds Aspirin 81 mg PO DAILY #90 tab.chew 09/16/17 [Rx] Atorvastatin [Lipitor] 20 mg PO HS #90 tablet 09/16/17 [Rx] Clopidogrel [Plavix] 75 mg PO DAILY #90 tablet 09/16/17 [Rx] GlipiZIDE XL (24 HR) [Glucotrol XL] 10 mg PO QAM #90 tab.er.24 09/16/17 [Rx] Metoprolol [Lopressor] 25 mg PO BID #180 tablet 09/16/17 [Rx] metFORMIN [Glucophage] 1,000 mg PO BID #120 tablet 09/16/17 [Rx] Furosemide [Lasix] 20 mg PO DAILY #3 tablet 12/20/17 [Rx] Insulin Glargine,Hum.rec.anlog [Basaglar Kwikpen U-100] 60 unit SQ QAM 12/22/17 [History] Ipratropium/Albuterol Sulfate [Combivent Respimat 20-100 Mcg] 1 puff IH QID 01/01 [History] Isosorbide MONOnitrate (24 HR) [Imdur] 30 mg PO DAILY 12/22/17 [History] Omeprazole [PriLOSEC] 20 mg PO DAILY 12/22/17 [History] 3 Allergy/AdvReac Type Severity Reaction Status Date / Time acetaminophen Allergy Hives Verified 12/20/17 10:09 [From Tylenol-Codeine] codeine Allergy Hives Verified 12/20/17 10:09 [From Tylenol-Codeine] All Systems PM: A 10-system review of systems was performed and is negative for pertinent findings except as documented above in the HPI. - Constitutional Vitals: Temp Pulse Resp BP Pulse Ox 97.9 F 62 16 141/84 96 12/22/17 19:44 12/22/17 19:44 12/22/17 19:44 12/22/17 19:44 12/22/17 19:44 Exam: General: Alert and oriented HEENT:EOM, pupils equal, round, and reactive. Cardiovascular:Normal S1 & S2, no murmurs or gallops. No JVD. Pulse regular. Lungs:Normal breath sounds, unable to appreciate any crackles at the bases of the lung Abdomen:Soft, non-tender, no rigidity. Extremities:No deformity, 1+ pitting edema bilaterally in LEs Neurological:Normal cognition and motor skills. Skin:Normal color, no rash, no lesions. Pulses:Carotid and radial pulses normal +2. Rest of the physical exam is non-contributory Internal Med - H&P Results - Labs CBC & Chem 7: 12/22/17 16:34 12/22/17 16:34 - Assessment and plan (1) Acute on chronic diastolic (congestive) heart failure Current Visit: Yes Status: Acute Assessment and plan: Presumably due to diastolic dysfunction. Echocardiogram in August 2017 showed normal EF with indeterminate diastolic dysfunction did not respond to PO lasix 20mg that she took from Wednesday Given IV Lasix 40mg in the ED trend troponin to rule out ACS as a cause telemetry overnight echocardiogram to assess for diastolic dysfunction Start PO lasix 40mg from tomorrow and discharge home may benefit from sleep study outpatient for JACLYN evaluation (2) CAD (coronary artery disease) Current Visit: No Status: Acute Assessment and plan: Presented with mild decompensated heart failure. Resume home meds including aspirin, statin, Plavix, beta gabriel, and Imdur. trend troponin Qualifiers: Coronary Disease-Associated Artery/Lesion type: [place] artery [place] vs. transplanted heart: [place] heart Associated angina: angina presence unspecified Qualified Code(s): I25.10 - Atherosclerotic heart disease of [place] coronary artery without angina pectoris (3) Status post coronary artery stent placement Current Visit: No Status: Acute Assessment and plan: Meds as above. (4) Diabetes Current Visit: No Status: Chronic Assessment and plan: On Lantus 60 units daily, metformin 1 g twice a day, and glipizide 10 mg daily. will hold off on [place]GA. 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
[2017-12-22] MEDS: Insulin DETEMIR 100 UNIT/ML X5UNITS SQ SCH (21:32)
[2017-12-22] MEDS: Insulin LISPRO 300 UNITS/3 ML VIAL SQ SCH (21:33)
[2017-12-22] MEDS: *HR* Heparin 5,000 UNIT/ML VIAL SQ SCH (21:39)
[2017-12-23 05:18] LABS: Basophils % 0.5 %; Eosinophils # 0.4 K/mcL (0.0-0.6); Eosinophils % 5.1 %; Hematocrit 39.8 % (35.3-44.9); Hemoglobin 13.3 g/dL (11.5-15.4); Immature Granulocytes % 0.1 % (0-4); Lymphocytes # 3.3 K/mcL (0.6-4.6); Lymphocytes % 40.8 %; Mean Corpuscular HGB Conc 33.4 g/dL (31.6-35.5); Mean Corpuscular Hemoglobin 30.9 pg (28.0-33.3); Mean Corpuscular Volume 92.6 fL (83.0-100.0); Mean Platelet Volume 9.6 fL (9.4-12.4); Monocytes # 0.5 K/mcL (0.0-1.3); Monocytes % 6.1 %; Neutrophils # 3.8 K/mcL (1.6-8.9); Platelet Count 228 K/mcL (140-400); Red Cell Distribution Width 14.2 % (11.5-14.5); Segmented Neutrophils % 47.4 %
[2017-12-23 05:34] LABS: BUN/Creatinine Ratio 24 (6-26); Blood Urea Nitrogen 11 mg/dL (6-20); Calcium 8.7 mg/dL (8.6-10.3); Carbon Dioxide 31 mEq/L (23-29); Chloride 104 mEq/L (98-107); Glucose 90 mg/dL (70-105); Magnesium 1.9 mg/dL (1.6-2.6); Osmolality,Calculated 289 (280-300); Potassium 3.5 mEq/L (3.5-5.1); Sodium 140 mEq/L (136-145); eGFR For Non-African Americans > 60 (> 60)
[2017-12-23] MEDS: *HR* Heparin 5,000 UNIT/ML VIAL SQ SCH ×3 (06:22→20:04)
[2017-12-23] MEDS: Insulin LISPRO 300 UNITS/3 ML VIAL SQ SCH ×4 (08:10→22:08)
[2017-12-23] MEDS ORDERED: Furosemide 20 MG TABLET PO SCH (09:00)
[2017-12-23] MEDS ORDERED: Furosemide 40 MG TABLET PO SCH (09:00)
[2017-12-23] MEDS: Isosorbide MONOnitrate (24 HR) 30 MG TAB.ER.24H PO SCH (10:00)
[2017-12-23] MEDS: Aspirin 81 MG TAB.CHEW PO SCH (10:00)
[2017-12-23] MEDS: Furosemide 20 MG/2 ML VIAL IVP SCH ×2 (10:56→20:04)
--- NOTE | 2017-12-23 14:30 | Internal Med Progress Note ---
Hospitalist Progress Note - Encounter Date of Encounter: 12/23/17 Time of Encounter: 14:28 - Subjective Interval History: c/o leg swelling. no sob, chest pain, or palpitation. - Exam Vitals: Temp Pulse Resp BP Pulse Ox 98.1 F 60 18 119/69 93 12/23/17 11:48 12/23/17 11:48 12/23/17 11:48 12/23/17 11:48 12/23/17 11:48 Exam: PHYSICAL EXAMINATION: GENERAL APPEARANCE: The patient is alert, oriented and in no acute distress. HEENT: Head is normocephalic. The sinuses are nontender. Pupils are equal and reactive. The nares are patent. Oropharynx clear without lesions. NECK: Supple without lymphadenopathy. HEART: Regular rate and rhythm. LUNGS: No crackles or wheezes are heard. ABDOMEN: Soft, nontender, nondistended with good bowel sounds heard. Inguinal area is normal. EXTREMITIES: 2+ pitting edema at BLE. NEUROLOGICAL: Gross nonfocal. SKIN: Warm and dry without any rash. - Assessment and Plan (1) Diabetes Current Visit: No Status: Chronic Assessment and Plan: On Lantus 60 units daily, metformin 1 g twice a day, and glipizide 10 mg daily. will hold off on [place]GA. Start levemir 45U QHS with moderate dose sliding scale ADA diet, BGM AC+HS (2) Acute on chronic diastolic (congestive) heart failure Current Visit: Yes Status: Acute Assessment and Plan: Presumably due to diastolic dysfunction. Echocardiogram in August 2017 showed normal EF with indeterminate diastolic dysfunction did not respond to PO lasix 20mg that she took from Wednesday Given IV Lasix 40mg in the ED, continue Lasix 20 mg IV BID. echocardiogram to assess for diastolic dysfunction (3) CAD (coronary artery disease) Current Visit: No Status: Acute Assessment and Plan: Presented with mild decompensated heart failure. Resume home meds including aspirin, statin, Plavix, beta gabriel, and Imdur. troponin normal. EKG no acute changes. continue tele. (4) Status post coronary artery stent placement Current Visit: No Status: Acute Assessment and Plan: Meds as above. (5) DVT prophylaxis Current Visit: Yes Status: Acute Assessment and Plan: Subcutaneous heparin - Time Spent with Patient Total time spent is greater than 50% in coordination of care (as documented) at patient's floor/unit and/or counseling patient: Internal Medicine: Result - Labs CBC & Chem 7: 12/23/17 04:40 12/23/17 04:40 Labs: Short CBC 12/23/17 Range/Units 04:40 WBC 8.0 (4.3-11.1) K/mcL Hgb 13.3 (11.5-15.4) g/dL Hct 39.8 (35.3-44.9) % Plt Count 228 (140-400) K/mcL Neutrophils # 3.8 (1.6-8.9) K/mcL BMP 12/23/17 04:40 Sodium 140 Potassium 3.5 Chloride 104 Carbon Dioxide 31 H BUN 11 Creatinine 0.46 L Glucose 90 Calcium 8.7 Cardiac Enzymes 12/22/17 Range/Units 22:20 Troponin I < 0.03 (< 0.04) ng/mL - ABG Interpretation ABG results: PT/INR, D-dimer PT 11.3 Seconds (9.4-12.1) 12/22/17 16:34 Consult Discharge Plan - Plan Referrals: Clyde Lucio DO [Primary Care Provider] - (1) Diabetes Qualifiers: Diabetes mellitus type: type 2 Diabetes mellitus [facility]p insulin use: with mcfp use Diabetes mellitus complication status: without complication Qualified Code(s): E11.9 - Type 2 diabetes mellitus without complications; Z79.4 - technician terminal and repeater (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 transplanted heart: [place] heart Associated angina: angina presence unspecified Qualified Code(s): I25.10 - Atherosclerotic heart disease of [place] coronary artery without angina pectoris
--- NOTE | 2017-12-23 16:29 | Electrocardiograph Report ---
[address] [place], [place] [address] Test Date: 2017-12-22 Pat Name: Marga Tatum Department: 104 Room: 3B48 Gender: F Police Judge: : 1965 Requested By: Chavo Bolton Order Number: [id number] Reading MD: Sandra Sanchez Measurements Intervals [place] Rate: 61 P: 5 WV: 160 QRS: -3 QRSD: 101 T: 20 QT: 425 QTc: 429 Interpretive Statements SINUS RHYTHM Electronically Signed On 12-23-2017 16:27:48 EDT by Sandra Sanchez
[2017-12-23] MEDS: Insulin DETEMIR 100 UNIT/ML X5UNITS SQ SCH (20:05)
[2017-12-23] MEDS ORDERED: Ibuprofen 400 MG TABLET PO ONE (20:48)
[2017-12-24] MEDS: *HR* Heparin 5,000 UNIT/ML VIAL SQ SCH (05:56)
[2017-12-24 06:15] LABS: Basophils % 0.6 %; Eosinophils # 0.4 K/mcL (0.0-0.6); Eosinophils % 5.3 %; Hematocrit 38.8 % (35.3-44.9); Hemoglobin 12.6 g/dL (11.5-15.4); Immature Granulocytes % 0.3 % (0-4); Lymphocytes % 45.6 %; Mean Corpuscular HGB Conc 32.5 g/dL (31.6-35.5); Mean Corpuscular Hemoglobin 29.4 pg (28.0-33.3); Mean Corpuscular Volume 90.7 fL (83.0-100.0); Mean Platelet Volume 9.5 fL (9.4-12.4); Monocytes # 0.5 K/mcL (0.0-1.3); Monocytes % 7.1 %; Neutrophils # 2.7 K/mcL (1.6-8.9); Platelet Count 230 K/mcL (140-400); Red Blood Count 4.28 M/mcL (3.82-4.97); Red Cell Distribution Width 14.1 % (11.5-14.5); Segmented Neutrophils % 41.1 %
[2017-12-24 06:36] LABS: BUN/Creatinine Ratio 25 (6-26); Blood Urea Nitrogen 12 mg/dL (6-20); Calcium 8.7 mg/dL (8.6-10.3); Carbon Dioxide 29 mEq/L (23-29); Chloride 106 mEq/L (98-107); Glucose 98 mg/dL (70-105); Osmolality,Calculated 294 (280-300); Potassium 3.6 mEq/L (3.5-5.1); Sodium 142 mEq/L (136-145); eGFR For Non-African Americans > 60 (> 60)
[2017-12-24] MEDS: Insulin LISPRO 300 UNITS/3 ML VIAL SQ SCH (07:58)
[2017-12-24] MEDS: Furosemide 20 MG/2 ML VIAL IVP SCH (08:05)
[2017-12-24] MEDS: Aspirin 81 MG TAB.CHEW PO SCH (08:05)
[2017-12-24] MEDS: Isosorbide MONOnitrate (24 HR) 30 MG TAB.ER.24H PO SCH (08:06)
--- NOTE | 2017-12-24 11:37 | Discharge Summary ---
- NOTES TO OUTPATIENT PROVIDER Notes to Outpatient Provider: f/u with PCP within a week. 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 transplanted heart: [place] heart Associated angina: angina presence unspecified Qualified Code(s): I25.10 - Atherosclerotic heart disease of [place] coronary artery without angina pectoris (4) Status post coronary artery stent placement Priority: Secondary Status: Chronic (5) DVT prophylaxis Priority: Primary Status: Acute Hospital course: Ms. Tatum is a 52 year old female with history of CAD status post PCI in July 2017, diabetes, hypertension, presented to the ED with 1 week history of leg swelling and shortness of breath. She was seen in the ED on Wednesday for the same complaint when she was given PO lasix 20mg to take at home. She states that it has not resolved her issue and was not urinating more frequently. Denies any orthopnea, PND, chest pain, palpitation, cough, or sputum production. No fevers/chills, nausea/vomiting, abdominal pain, dysuria, hematuria, change in bowel habits, joint pain, or rash. States that she does not excessively drink fluid. In the ED, she was afebrile and hemodynamically stable. Saturating 95% on room air. Lab work was unremarkable with normal CBC and BMP. Troponin was negative. BNP was 60. EKG normal sinus rhythm without ST elevations. She was given 1 dose of IV Lasix at the ED and admitted for further management. Repeat Echocardiogram showed preserved ejection fraction, moderately impaired diastolic function. Volume overload as resolved after IV Lasix. Home dose of Lasix has adjusted, she was instructed to follow-up PCP as scheduled. Discharge discussed with: patient Time spent discussing smoking cessation with patient: more than 10 minutes - Time Spent with Patient Total time spent providing and/or coordinating discharge services: Greater than 30 minutes - Discharge Medications Prescriptions: Furosemide [Lasix] 20 mg PO BIDDIURETIC #60 tablet Home Medications: Aspirin 81 mg PO DAILY #90 tab.chew 09/16/17 [Rx] Atorvastatin [Lipitor] 20 mg PO HS #90 tablet 09/16/17 [Rx] Clopidogrel [Plavix] 75 mg PO DAILY #90 tablet 09/16/17 [Rx] GlipiZIDE XL (24 HR) [Glucotrol XL] 10 mg PO QAM #90 tab.er.24 09/16/17 [Rx] Metoprolol [Lopressor] 25 mg PO BID #180 tablet 09/16/17 [Rx] metFORMIN [Glucophage] 1,000 mg PO BID #120 tablet 09/16/17 [Rx] Insulin Glargine,Hum.rec.anlog [Basaglar Kwikpen U-100] 60 unit SQ QAM 12/22/17 [History] Ipratropium/Albuterol Sulfate [Combivent Respimat 20-100 Mcg] 1 puff IH QID 01/01 [History] Isosorbide MONOnitrate (24 HR) [Imdur] 30 mg PO DAILY 12/22/17 [History] Omeprazole [PriLOSEC] 20 mg PO DAILY 12/22/17 [History] Furosemide [Lasix] 20 mg PO BIDDIURETIC #60 tablet 12/24/17 [Rx] Allergies/Adverse Reactions: 3 Allergy/AdvReac Type Severity Reaction Status Date / Time acetaminophen Allergy Hives Verified 12/20/17 10:09 [From Tylenol-Codeine] codeine Allergy Hives Verified 12/20/17 10:09 [From Tylenol-Codeine] Date of admission: 12/22/17 18:06 Primary care physician: Clyde Lucio DO Anticipated date of discharge: 12/24/17 - Constitutional Vitals: Temp Pulse Resp BP Pulse Ox 98.0 F 61 16 120/70 94 12/24/17 07:24 12/24/17 07:24 12/24/17 07:24 12/24/17 07:24 12/24/17 07:24 General appearance: Present: cooperative, A&O X 3, answers questions appropriately Exam: PHYSICAL EXAMINATION: GENERAL APPEARANCE: The patient is alert, oriented and in no acute distress. HEENT: Head is normocephalic. The sinuses are nontender. Pupils are equal and reactive. The nares are patent. Oropharynx clear without lesions. NECK: Supple without lymphadenopathy. HEART: Regular rate and rhythm. LUNGS: No crackles or wheezes are heard. ABDOMEN: Soft, nontender, nondistended with good bowel sounds heard. Inguinal area is normal. EXTREMITIES: Without cyanosis, clubbing or edema. NEUROLOGICAL: Gross nonfocal. SKIN: Warm and dry without any rash. - Patient Status Disposition: Home, Self-Care Condition: Good Functional capacity at discharge: independent ambulation Overall status at discharge: patient is progressing back to baseline - Discharge Instructions Follow Up With: Clyde Lucio DO [Primary Care Provider] - 12/31/17 4:00 pm - Diet and Activity Activity: increase activity as tolerated Diet: diabetic diet, low fat, low cholesterol, low salt diet
[2017-12-24] MEDS ORDERED: Furosemide 20 MG TABLET PO SCH (11:45)
[2017-12-24 11:46] VITALS: BP 142/74
== END 2017-12-24 12:26 | disposition home or self-care (01) ==
LOC: 3BNU 16:06 → EMEROO 16:06 → 3BNU 18:40
PROVIDERS: ADMIT Internal Medicine; ATTEND Internal Medicine